=== PATIENT | male | born 1945 | race Caucasian/White ===

== ENCOUNTER 2019-10-10 16:54 | Inpatient (IN) | payer MEDICARE, SELFPAY ==
[2019-10-10 16:54] VITALS: RESP 18
[2019-10-10 17:14] VITALS: BP 172/129; PULSE 96; RESP 18; TEMP 36.6; O2SAT 97; BMI 22.8
--- NOTE | 2019-10-10 17:23 | ED_ITS ---
Entered by Kim Lucio, acting as scribe for Renee Murphy MD HPI - Abdominal Pain General: Chief Complaint: Abdominal Pain Stated Complaint: Abd pain/vomiting black tar Time Seen by Provider: 10/10/19 17:18 Source: patient Mode of arrival: ambulatory Limitations: no limitations History of Present Illness: HPI narrative: 74 yo Male presents to ED with complaint of abdominal pain, nausea, vomiting, and black, coffee ground emesis. Pt states that he has a history of pancreatitis and this episode feels similar. He also tells me he has a known pancreatic mass, also tells me that they tried to remove it but could not because it was wrapped around the vessel this was in [place] I believe. He has had several abdominal surgeries for hernias and also had infected sutures. He has vomited several times today but declines any pain medicine at this time. Pain is 3 out of 10 diffuse. Denies any increased shortness of breath but does use albuterol as needed. No known fever or cold symptoms at this time. MD elicited complaint: abdominal pain Onset (ago): day(s) (yesterday) Pain Consistency: intermittent Pain scale (0-10): 3 Quality: dull Radiation: back (lower) Migration to: no migration Exacerbating factors: nothing Relieving factors: nothing Associated Symptoms: Reports coffee ground emesis, hematemesis, nausea and vomiting; Denies change in bowel habits, chills and fever(s) Review of Systems General: Reports: 10 or more systems reviewed and unremarkable except in HPI and below Const: Denies: fever or chills Eyes: Denies: change in vision ENMT: Denies: throat pain Card: Denies: chest pain Resp: Denies: shortness of breath GI: Reports: nausea, vomiting, vomiting blood and coffee grounds in vomit; Denies: abdominal pain or change in bowel habits Musc: Denies: muscle weakness Skin/Breast: Denies: rash Neuro: Denies: headache Psych: Denies: hopelessness or suicidal ideation Endo: Denies: excessive urination Narciso/Lymph: Denies: easy bruising or easy bleeding All/Imm: Denies: hives PFS ED PFSH: Medical History (Updated 10/10/19 @ 20:12 by Jaci Dudley MD) COPD (chronic obstructive pulmonary disease) Diabetes mellitus type 2, noninsulin dependent Hypertension Pancreatic mass spongy mass, per pt, wrapped around aorta Ventral hernia multiple, no current mesh Surgical History (Updated 10/10/19 @ 20:14 by Jaci Dudley MD) History of cholecystectomy History of laparotomy (~2012) unable to resect mass, had mesh, removed after infection, has multiple ventral hernias related to this Previous back surgery x 4, L3, L4, L5 S/P TURP Family History (Updated 10/10/19 @ 20:17 by Jaci Dudley MD) Unknown Cancer breast, skin, brain, colon Social History (Updated 10/10/19 @ 20:18 by Jaci Dudley MD) Smoking and tobacco status: former smoker Quit status (tobacco): has quit using tobacco Year quit tobacco: 2011 Alcohol intake: current Alcohol intake frequency: holidays/special occasions only Substance/Drug Use: never Household members: children Marital status: / Physical Exam Const: COMMON NORMALS: no apparent distress, oriented x3, alert and well nourished HENMT: COMMON NORMALS: normocephalic and external nose normal HEAD & SCALP: normocephalic NOSE: external nose normal MOUTH: no trismus Eye: COMMON NORMALS: EOMs intact bilaterally and conjunctivae normal CONJUNCTIVA: Yes conjunctivae normal Neck/C-Spine: COMMON NORMALS: full ROM, no lymphadenopathy and supple CERVICAL SPINE: Yes cervical ROM normal Lymph: LYMPHATIC: no lymphadenopathy noted Resp: COMMON NORMALS: normal respiratory effort, no retractions, no use of accessory muscles and clear to auscultation bilaterally EFFORT & INSPECTION: Yes able to speak in complete sentences AUSCULTATION: clear to auscultation bilaterally Cardio: COMMON NORMALS: regular rate and regular rhythm RATE: regular rate RHYTHM: regular rhythm GI: PALPATION: No guarding and No rigid OTHER: Decreased bowel sounds slightly distended. Tender to moderate palpation no rigidity does not have a surgical abdomen at this time. Back/Pelvis: OTHER: Normal range of motion Extremity: GENERAL: Yes normal exam except as noted Neuro: COMMON NORMALS: oriented x3 and CN's II-XII intact bilaterally SENSORIUM/ORIENTATION: Yes alert SPEECH: speech normal Psych: COMMON NORMALS: mental status grossly normal Skin: COMMON NORMALS: no rashes or lesions noted GENERAL SKIN EXAM: no rashes or lesions noted Course Vital Signs: Vital signs: Vital Signs Temperature 97.9 F 10/10/19 17:14 Pulse Rate 86 10/10/19 20:17 Respiratory Rate 17 10/10/19 18:54 Blood Pressure 163/91 10/10/19 20:17 Pulse Oximetry 98 10/10/19 20:17 MDM - Abdominal Pain MDM Narrative: Medical decision making narrative: Declined any pain medication. States his pain is a 3 out of 10 Discussed with hospitalist will admit. Patient tells me he has had NG tube in the past and does not mind them I have already ordered NG tube insertion. He still declines pain medication. He does not have pancreatitis but pancreatic mass is noted he was aware he had a pancreatic mass when he came in. He has not had any vomiting in the emergency department but has vomited numerous times today. Lab Data: Labs: Lab Results 10/10/19 10/10/19 10/10/19 Range/Units 17:31 17:31 17:31 WBC 22.4 H (4.0-10.0) 10^3/ uL RBC 6.12 H (4.1-5.3) 10^6/u L Hgb 16.6 (11.7-16.6) g/dL Hct 51.0 (42.0-52.0) % MCV 83.3 (80-94) fL MCH 27.1 L (28.0-34.0) pg MCHC 32.5 (30.0-36.0) g/dL RDW 15.6 H (12.1-15.1) % Plt Count 401 H (130-400) 10^3/c mm MPV 11.1 H (7.4-10.4) fL Neut % (Auto) 86.0 % Lymph % (Auto) 8.6 % [place] % (Auto) 4.7 % Eos % (Auto) 0.1 % Baso % (Auto) 0.2 % Neut # (Auto) 19.3 H (1.8-7.7) 10^3/u L Lymph # (Auto) 1.9 (0.8-4.8) 10^3/u L [place] # (Auto) 1.1 H (0.2-0.9) 10^3/u L Eos # (Auto) 0.0 (0.0-0.8) 10^3/u L Baso # (Auto) 0.1 (0.0-0.1) 10^3/u L Nucleated RBC % (a uto) 0 % Nucleated RBCs # 0.0 /100WBC PT 14.00 H (10.5-13.3) SECO NDS INR 1.04 (0.8-1.2) Sodium 136 (136-145) mmol/L Potassium 4.8 (3.5-5.1) mmol/L Chloride 95 L (98-107) mmol/L Carbon Dioxide 22 (22-29) mmol/L Anion Gap 23.8 H (5-19) BUN 31 H (8-23) mg/dL Creatinine 2.3 H (0.7-1.2) mg/dL Glucose 259 H (65-115) mg/dL Calculated Osmolal ity 288 (285-295) mOsm/k g Calcium 10.7 H (8.5-10.5) mg/dL Total Bilirubin 0.5 (0.15-1.2) mg/dL AST 15 (0-40) U/L ALT 14 (0-41) U/L Alkaline Phosphata se 140 H (40-130) IU/L Total Protein 9.2 H (6.6-8.7) g/dL Albumin 5.1 (3.5-5.2) g/dL Globulin 4.1 (1.3-4.6) g/dL Lipase 22 (13-60) U/L Imaging Data ^: CXR: Attestation: I personally reviewed and interpreted this imaging study as follows: My impression: No acute disease CT Abd/Pel: Radiologist's impression: [place] [address] CT Scan Report Signed Patient: Jonathon Green JrUnit #: [id number] : 6Acct#:[id number] Age/Sex: 74 / MADM Date: 10/10/19 Loc: ERRoom/Bed: Attending Dr: Ordering Provider/Ordering MD: Renee Murphy MD Date of Service: 10/10/19 Procedure(s): CT abdomen pelvis [facility] [id number] Accession Number(s): [id number] Report Number: [id number] PROCEDURE INFORMATION: Exam: CT Abdomen And Pelvis Without Contrast Exam date and time: 10/10/2019 6:22 PM Age: 74 years old Clinical indication: Nausea and vomiting and other: Diarrhea; Abdominal pain; Generalized; Prior surgery; Surgery type: Gb, appy, hernia, prostate; Patient HX: Vomiting blood; Additional info: Abd pain feels like his pancreatitis TECHNIQUE: Imaging protocol: Computed tomography of the abdomen and pelvis without contrast. Total DLP: 632.8 mGy-cm Radiation optimization: All CT scans at this facility use at least one of these dose optimization techniques: automated exposure control; mA and/or kV adjustment per patient size (includes targeted exams where dose is matched to clinical indication); or iterative reconstruction. COMPARISON: No relevant prior studies available. FINDINGS: Lungs: There is severe emphysematous changes. There is bronchiectasis with some interstitial and ground-glass opacity in the lungs with a tree-in-bud appearance compatible with mild basilar pneumonitis. Mediastinum: A small hiatal hernia is present. Liver: The liver has a finely nodular contour, consistent with cirrhosis. Gallbladder and bile ducts: There has been a cholecystectomy. Pancreas: The head and body of the pancreas are in large with a multi loculated/septated masslike appearance with multiple calcifications measuring 8.0 x 13.5 by 15.0 cm in size. 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 There is marked atrophy of the distal pancreas. No peripancreatic inflammatory change or fluid. No active/acute pancreatitis or simple fluid collection/pseudocyst. Spleen: Normal. No splenomegaly. Adrenals: Normal. No mass. Kidneys and ureters: There is no evidence of hydronephrosis. There is no evidence of renal calcifications. There is a 1.5 cm simple cyst in the left kidney. There is a 1.2 cm upper pole simple cyst in the right kidney. There is a 2.1 cm simple cyst lower pole left kidney. Stomach and bowel: Moderate diverticulosis is present in the distal colon. There is no evidence of colitis/diverticulitis. There is no evidence of colitis/diverticulitis. There are dilated loops of small bowel with air-fluid levels compatible with a partial small bowel obstruction. The greatest transverse measurement the dilated loops of bowel is 4.3 cm. There is an abrupt transition zone in the appearance is concerning for adhesions. The distal loops of small bowel are collapsed. Note is made that the large pancreatic mass is displacing the distal stomach. No definable fat plane is identified between the mass and the distal stomach and duodenum. MRI would be helpful in this regard. No thickened loops of bowel. No inflammatory changes. Appendix: A normal appendix is identified. Intraperitoneal space: Unremarkable. No free air. No significant fluid collection. Vasculature: The aorta demonstrates moderate atherosclerotic calcification. Lymph nodes: Unremarkable.No enlarged lymph nodes. Bladder: There is nonspecific bladder wall thickening. This may be related to incomplete distention. There is a diverticulum of the right bladder wall. Reproductive: Unremarkable as visualized. Bones/joints: Postoperative changes in the lower lumbar spine are noted. There are probable bone graft donor sites in both iliac wings. No acute fracture or bony destructive lesion is identified. Soft tissues: There is a nonobstructing left inguinal hernia. Other findings: There are some varicosities in the upper abdomen. CT/CT abdomen pelvis wo con [id number] IMPRESSION: 1. Emphysematous changes with mild pneumonitis. 2. Partial small bowel obstruction with abrupt transition zone concerning for adhesions. No wall thickening or inflammatory changes. 3. Large septated multiloculated pancreatic mass with irregular calcifications concerning for pancreatic neoplasm. This is not a typical pseudocyst. No evidence of acute pancreatitis. MRI with and without contrast would be most sensitive to further characterize this pancreatic lesion. MRI would also be helpful to evaluate the stomach and duodenum which are displaced by this mass. 4. Bilateral simple appearing renal cysts. No follow-up is necessary. COMMENTS: Consistent with the [employer]'s Incidental Findings Committee white paper (J Am Karolina Radiol 2018): Any incidental cystic renal lesion classified in this report as too small to characterize or simple appearing is likely a benign cyst. No follow-up imaging is recommended for these lesions per consensus recommendations based on imaging criteria. Radiation Dose CTDIVOL = (mGy): DLP = 632.8 (mGy-cm) Dictated By:Shakila Wong Signed By:Dvaey Wong Date/Time:10/10/191908 DD/ 06 Discharge Plan Discharge Patient Disposition: Admitted As Inpatient Admit Provider: Jaci Dudley Clinical Impression: Small bowel obstruction, Pancreatic mass Condition: Stable Referrals: Jerome,Allyson M, [employer]MENT TENDER [Primary Care Provider] - Coding Level of Care Code ED Carpenter Assembler for Chg Fwd Exam Comprehensive The documentation recorded by the Khadijah peterson Carmen, accurately reflects the service I personally performed and the decisions made by me, Renee Murphy MD
[2019-10-10 17:37] LABS: Basophils # 0.1 10^3/uL (0.0-0.1); Basophils % 0.2 %; Eosinophils % 0.1 %; Hemoglobin 16.6 g/dL (11.7-16.6); Lymphocytes # 1.9 10^3/uL (0.8-4.8); Lymphocytes % 8.6 %; Mean Corpuscular HGB Conc 32.5 g/dL (30.0-36.0); Mean Corpuscular Hemoglobin 27.1 pg (28.0-34.0); Mean Corpuscular Volume 83.3 fL (80-94); Mean Platelet Volume 11.1 fL (7.4-10.4); Monocytes # 1.1 10^3/uL (0.2-0.9); Monocytes % 4.7 %; Neutrophils # 19.3 10^3/uL (1.8-7.7); Nucleated Red Blood Cells % 0 %; Platelet Count 401 10^3/cmm (130-400); Red Blood Count 6.12 10^6/uL (4.1-5.3); Red Cell Distribution Width 15.6 % (12.1-15.1); White Blood Count 22.4 10^3/uL (4.0-10.0)
--- NOTE | 2019-10-10 17:38 | CTR_ITS ---
PROCEDURE INFORMATION: Exam: CT Abdomen And Pelvis Without Contrast Exam date and time: 10/10/2019 6:22 PM Age: 74 years old Clinical indication: Nausea and vomiting and other: Diarrhea; Abdominal pain; Generalized; Prior surgery; Surgery type: Gb, appy, hernia, prostate; Patient HX: Vomiting blood; Additional info: Abd pain feels like his pancreatitis TECHNIQUE: Imaging protocol: Computed tomography of the abdomen and pelvis without contrast. Total DLP: 632.8 mGy-cm Radiation optimization: All CT scans at this facility use at least one of these dose optimization techniques: automated exposure control; mA and/or kV adjustment per patient size (includes targeted exams where dose is matched to clinical indication); or iterative reconstruction. COMPARISON: No relevant prior studies available. FINDINGS: Lungs: There is severe emphysematous changes. There is bronchiectasis with some interstitial and ground-glass opacity in the lungs with a tree-in-bud appearance compatible with mild basilar pneumonitis. Mediastinum: A small hiatal hernia is present. Liver: The liver has a finely nodular contour, consistent with cirrhosis. Gallbladder and bile ducts: There has been a cholecystectomy. Pancreas: The head and body of the pancreas are in large with a multi loculated/septated masslike appearance with multiple calcifications measuring 8.0 x 13.5 by 15.0 cm in size. 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 There is marked atrophy of the distal pancreas. No peripancreatic inflammatory change or fluid. No active/acute pancreatitis or simple fluid collection/pseudocyst. Spleen: Normal. No splenomegaly. Adrenals: Normal. No mass. Kidneys and ureters: There is no evidence of hydronephrosis. There is no evidence of renal calcifications. There is a 1.5 cm simple cyst in the left kidney. There is a 1.2 cm upper pole simple cyst in the right kidney. There is a 2.1 cm simple cyst lower pole left kidney. Stomach and bowel: Moderate diverticulosis is present in the distal colon. There is no evidence of colitis/diverticulitis. There is no evidence of colitis/diverticulitis. There are dilated loops of small bowel with air-fluid levels compatible with a partial small bowel obstruction. The greatest transverse measurement the dilated loops of bowel is 4.3 cm. There is an abrupt transition zone in the appearance is concerning for adhesions. The distal loops of small bowel are collapsed. Note is made that the large pancreatic mass is displacing the distal stomach. No definable fat plane is identified between the mass and the distal stomach and duodenum. MRI would be helpful in this regard. No thickened loops of bowel. No inflammatory changes. Appendix: A normal appendix is identified. Intraperitoneal space: Unremarkable. No free air. No significant fluid collection. Vasculature: The aorta demonstrates moderate atherosclerotic calcification. Lymph nodes: Unremarkable.No enlarged lymph nodes. Bladder: There is nonspecific bladder wall thickening. This may be related to incomplete distention. There is a diverticulum of the right bladder wall. Reproductive: Unremarkable as visualized. Bones/joints: Postoperative changes in the lower lumbar spine are noted. There are probable bone graft donor sites in both iliac wings. No acute fracture or bony destructive lesion is identified. Soft tissues: There is a nonobstructing left inguinal hernia. Other findings: There are some varicosities in the upper abdomen. CT/CT abdomen pelvis wo con [id number] IMPRESSION: 1. Emphysematous changes with mild pneumonitis. 2. Partial small bowel obstruction with abrupt transition zone concerning for adhesions. No wall thickening or inflammatory changes. 3. Large septated multiloculated pancreatic mass with irregular calcifications concerning for pancreatic neoplasm. This is not a typical pseudocyst. No evidence of acute pancreatitis. MRI with and without contrast would be most sensitive to further characterize this pancreatic lesion. MRI would also be helpful to evaluate the stomach and duodenum which are displaced by this mass. 4. Bilateral simple appearing renal cysts. No follow-up is necessary. COMMENTS: Consistent with the [employer]'s Incidental Findings Committee white paper (J Am Karolina Radiol 2018): Any incidental cystic renal lesion classified in this report as too small to characterize or simple appearing is likely a benign cyst. No follow-up imaging is recommended for these lesions per consensus recommendations based on imaging criteria. Radiation Dose CTDIVOL = (mGy): DLP = 632.8 (mGy-cm)
--- NOTE | 2019-10-10 17:43 | XRR_ITS ---
PROCEDURE INFORMATION: Exam: XR Chest, 1 View Exam date and time: 10/10/2019 6:22 PM Age: 74 years old Clinical indication: Patient HX: Limited HX, cough TECHNIQUE: Imaging protocol: XR of the chest Views: 1 view. COMPARISON: No relevant prior studies available. FINDINGS: Lungs: There is severe hyperinflation compatible COPD. There is mild basilar volume loss versus fibrosis. No lobar consolidation. Probable bilateral nipples are creating symmetric size small nodular densities projected over both lower lobes measuring by 8 mm in size. The right nodular densities much more apparent. No consolidation. Pleural space: Unremarkable. No pleural effusion. No pneumothorax. Heart/Mediastinum: Unremarkable. No cardiomegaly. Bones/joints: No acute abnormality. XR/XR chest 1V portable [id number] IMPRESSION: 1. No acute findings. Severe COPD and basilar atelectasis versus fibrosis. 2. Probable nipples are creating symmetric nodular densities projected over the lung bases. Follow-up two view chest x-ray with nipple markers is recommended to exclude true pulmonary nodules.
[2019-10-10 17:48] LABS: INR 1.04 (0.8-1.2)
[2019-10-10 17:54] LABS: Alanine Aminotransferase 14 U/L (0-41); Albumin Level 5.1 g/dL (3.5-5.2); Alkaline Phosphatase 140 IU/L (40-130); Anion Gap 23.8 (5-19); Aspartate Amino Transferase 15 U/L (0-40); Blood Urea Nitrogen 31 mg/dL (8-23); Calcium 10.7 mg/dL (8.5-10.5); Carbon Dioxide 22 mmol/L (22-29); Chloride 95 mmol/L (98-107); Globulin 4.1 g/dL (1.3-4.6); Glucose 259 mg/dL (65-115); Lipase 22 U/L (13-60); Osmolality Calculated 288 mOsm/kg (285-295); Potassium 4.8 mmol/L (3.5-5.1); Sodium 136 mmol/L (136-145); Total Bilirubin 0.5 mg/dL (0.15-1.2); Total Protein 9.2 g/dL (6.6-8.7)
[2019-10-10] MEDS: famotidine 20 mg/2 mL INJ IVP ×2 (17:54→22:36)
[2019-10-10] MEDS: ondansetron 2 mg/ML SDV 2 mL 4 MG IVP (18:01)
[2019-10-10] MEDS: sodium chloride 0.9% 1,000 ML 999 ML IV (18:53)
[2019-10-10 18:54] VITALS: BP 96/83; PULSE 83; RESP 17; O2SAT 98
--- NOTE | 2019-10-10 20:14 | PM.HP ---
Providers/Chief Complaint Admitting Physician: Jaci Dudley MD Primary Care Provider: MARCUS Pickens Chief Complaint: Abd pain/vomiting History of Present Illness Jonathon rGeen Jr is a 74 year old male who presented to the emergency room with chief complaint of abdominal pain. It began yesterday after awakening. Pain was located in the central part of the abdomen. Radiated into the right flank at that point in time. At its worst it was rated a 10 out of 10. Currently at a 4 out of 10. Today he began having vomiting of dark-colored emesis, several episodes. He is also had 4-5 loose watery stools. He normally has a moderately formed bowel movement every other day. His last moderately formed bowel movement was about a week ago. No recent history of any blood in the stools or black tarry stools. Last oral intake was last evening. Patient has a history of known pancreatic mass. It is not malignant. It was not resectable however due to being wrapped around the aorta. He developed multiple ventral hernias and adhesions after his initial surgery related to this. He has had what sounds like small bowel obstructions previously managed conservatively with NG tube placement. Last significant bout with any of this was 5 to 7 years ago. In the emergency room he had a CT scan of his abdomen done that showed evidence of small bowel obstruction with a transition point. White count was found to be 22,000. He is being admitted for further care. Patient is relatively new to the area. He follows with nurse practitioner Allyson Cano. He has never been hospitalized or received care at our facilities. Denies recent fever or chills. He has known COPD on chronic oxygen at 3L [facility] but denies increasing cough, which is always productive, increasing wheeze or increased shortness of breath. Him and his family have been following recommended COVID measures. Review of Systems General: Reports: ROS unobtainable due to mental status Const: Reports: malaise (Mild); Denies: fever, chills, change in weight (No recent change in weight) or night sweats Eyes: Denies: change in vision ENMT: Denies: throat pain Card: Denies: chest pain Resp: Reports: productive cough and wheezing; Denies: shortness of breath GI: Reports: abdominal pain, nausea and vomiting : Denies: difficulty urinating, urinary frequency, urinary hesitancy or urinary dribbling Musc: Reports: back pain; Denies: joint pain or redness Skin/Breast: Denies: rash or sores Neuro: Denies: headache, numbness in extremities, weakness in extremities or frequent falls Narciso/Lymph: Denies: easy bruising or easy bleeding Medications/Allergies Home Medications Medication Instructions Recorded Confirmed Last Taken Type albuterol sulfate See Rx Instructions .ROUTE .COMPLEX 10/10/19 10/10/19 10/10/19 History amlodipine 5 mg PO DAILY 10/10/19 10/10/19 10/08/19 History benazepril 20 mg PO DAILY 10/10/19 10/10/19 10/08/19 History esomeprazole magnesium 20 mg PO DAILY 10/10/19 10/10/19 10/08/19 History metformin 500 mg PO DAILY 10/10/19 10/10/19 10/10/19 History metoprolol tartrate 25 mg PO BID 10/10/19 10/10/19 10/10/19 History tiotropium bromide [Spiriva 2 puff INHALATION DAILY 10/10/19 10/10/19 10/10/19 History Respimat] Allergies Allergy/AdvReac Type Severity Reaction Status Date / Time Opioids-Methadone and Related Allergy ADR-Itching Verified 10/10/19 17:14 Additional Medication Information Additional Medication Information: Home medications reviewed with patient and son PFSH Acute PFSH: Medical History (Updated 10/10/19 @ 21:32 by Jaci Dudley MD) COPD (chronic obstructive pulmonary disease) chronically on 3l oxygen [facility] Diabetes mellitus type 2, noninsulin dependent Hypertension Pancreatic mass spongy mass, per pt, wrapped around aorta Ventral hernia multiple, no current mesh Surgical History (Updated 10/10/19 @ 20:14 by Jaci Dudley MD) History of cholecystectomy History of laparotomy (~2012) unable to resect mass, had mesh, removed after infection, has multiple ventral hernias related to this Previous back surgery x 4, L3, L4, L5 S/P TURP Family History (Updated 10/10/19 @ 20:17 by Jaci Dudley MD) Unknown Cancer breast, skin, brain, colon Social History (Updated 10/10/19 @ 20:18 by Jaci Dudley MD) Smoking and tobacco status: former smoker Quit status (tobacco): has quit using tobacco Year quit tobacco: 2011 Alcohol intake: current Alcohol intake frequency: holidays/special occasions only Substance/Drug Use: never Household members: children Marital status: / Vitals/I&O/Wt Last Vital Signs Temp 97.9 F 10/10/19 17:14 Pulse 83 10/10/19 18:54 Resp 17 10/10/19 18:54 BP 96/83 10/10/19 18:54 Pulse Ox 98 10/10/19 18:54 most recent blood pressure during my examination was 163/93 Weight last 48 hrs Weight 70.307 kg Physical Exam Const: COMMON NORMALS: oriented x3 and alert HENMT: HEAD & SCALP: normocephalic and atraumatic Eye: COMMON NORMALS: PERRL and EOMs intact bilaterally Neck/C-Spine: COMMON NORMALS: supple Resp: COMMON NORMALS: normal respiratory effort, no use of accessory muscles and clear to auscultation bilaterally Cardio: COMMON NORMALS: regular rate, regular rhythm, no gallops, no murmurs and no rub GI: AUSCULTATION: Yes hypoactive bowel sounds PALPATION: Yes soft, Yes tender Details: RUQ and other (Central along ventral hernia), Yes hernia ventral (Multiple, 1 in the left upper quadrant reducible, another to the left of midline around the umbilicus reducible, has report of others but these were the only 2 I could clearly identify), No pulsatile mass and No rebound tenderness present PERCUSSION: tympanic to percussion (mild) OTHER: Abdomen has a general lumpy appearance with a ventral midline scar as well as another scar in the left upper quadrant area. Patient is mildly tender in the mid line at the usp point of his ventral scar as well as in the right upper quadrant. No rebound or guarding Extremity: COMMON NORMALS: no clubbing, cyanosis or edema Neuro: COMMON NORMALS: oriented x3, moves all extremities and no sensory deficits noted Psych: COMMON NORMALS: thought process normal and cooperative Skin: COMMON NORMALS: no rashes or lesions noted and no mottling Data : 10/10/19 17:31 10/10/19 17:31 Other Labs: Laboratory Tests 10/10/19 10/10/19 10/10/19 17:31 17:31 17:31 Neut % (Auto) 86.0 INR 1.04 Total Bilirubin 0.5 AST 15 ALT 14 Alkaline Phosphatase 140 H Total Protein 9.2 H Albumin 5.1 Lipase 22 Urine Glucose (UA) Ur Leukocyte Esterase 10/10/19 20:20 Neut % (Auto) INR Total Bilirubin AST ALT Alkaline Phosphatase Total Protein Albumin Lipase Urine Glucose (UA) Trace H Ur Leukocyte Esterase Trace H CXR: Radiologist's impression: IMPRESSION: 1. No acute findings. Severe COPD and basilar atelectasis versus fibrosis. 2. Probable nipples are creating symmetric nodular densities projected over the lung bases. Follow-up two view chest x-ray with nipple markers is recommended to exclude true pulmonary nodules CT Abd/Pel: Radiologist's impression: IMPRESSION: 1. Emphysematous changes with mild pneumonitis. 2. Partial small bowel obstruction with abrupt transition zone concerning for adhesions. No wall thickening or inflammatory changes. 3. Large septated multiloculated pancreatic mass with irregular calcifications concerning for pancreatic neoplasm. This is not a typical pseudocyst. No evidence of acute pancreatitis. MRI with and without contrast would be most sensitive to further characterize this pancreatic lesion. MRI would also be helpful to evaluate the stomach and duodenum which are displaced by this mass. 4. Bilateral simple appearing renal cysts. No follow-up is necessary. A&P Assessment and plan (1) Small bowel obstruction: In a patient with known history of multiple ventral hernias and previousSurgeries for an unresectable pancreatic mass which is benign. He has a transition point noted and an elevated white blood count but is currently passing gas, having liquid stools. He does have some vomiting though at the present moment is doing generally better. Status: Acute Code(s): K56.609 - Unspecified intestinal obstruction, unspecified as to partial versus complete obstruction (2) Acute renal failure: Versus new diagnosis of chronic kidney disease. He denies any history of such. Risk factors include known diabetes and hypertension. He is chronically on an ABILIO inhibitor and has been on metformin. Volume of loose stools and vomiting could contribute to prerenal failure. Without any baseline labs for comparison though hard to know presently. Status: Acute Qualifiers: Acute renal failure type: unspecified Qualified Code(s): N17.9 - Acute kidney failure, unspecified Code(s): N17.9 - Acute kidney failure, unspecified (3) Abnormal urine: Patient with trace leukocyte esterase on urinalysis. Awaiting micro. Denies any urinary symptoms. Status: Acute Code(s): R82.90 - Unspecified abnormal findings in urine (4) Pancreatic mass: Longstanding diagnosis, benign, wrapped around the aorta. Status: Chronic Code(s): K86.89 - Other specified diseases of pancreas (5) Diabetes mellitus type 2, noninsulin dependent: Takes metformin regularly once a day Status: Chronic Code(s): E11.9 - Type 2 diabetes mellitus without complications (6) Hypertension: Chronically on amlodipine, benazepril and metoprolol Status: Chronic Qualifiers: Hypertension type: essential hypertension Qualified Code(s): I10 - Essential (primary) hypertension Code(s): I10 - Essential (primary) hypertension (7) COPD (chronic obstructive pulmonary disease): Not currently acute, chronically on Spiriva and albuterol has chronic productive cough and wheezing without any escalation in symptoms lately. Status: Chronic Qualifiers: COPD type: unspecified COPD Qualified Code(s): J44.9 - Chronic obstructive pulmonary disease, unspecified Code(s): J44.9 - Chronic obstructive pulmonary disease, unspecified Additional A&P Information Admit to inpatient status NG tube placement IV fluids Reevaluate renal function in the morning Empiric antibiotic coverage to include coverage for both GI and potential urinary sources Follow-up pending micro on urinalysis SCDs for DVT prophylaxis PPI for GI prophylaxis, of note patient does take Nexium chronically Continue Spiriva and albuterol as needed, home oxygen rate Monitor for any progressive respiratory symptoms Sliding scale insulin for diabetes Check hemoglobin A1c given current blood sugars greater than 250 Will hold oral antihypertensives for the moment but order some as needed IV Surgical consultation with Dr. Frank's given history and CT imaging findings. I have discussed with him and he will see patient in the morning Plans were discussed with patient and his son and both were given an opportunity to ask questions. The patient did ask about having his ventral hernias repaired during this hospital stay. Explained to him that unless he had an acute issue necessitating surgical intervention that these would be considered elective procedures which are not being done now in light of the COVID situation. Both the patient and his son expressed a clear understanding of this. 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 CODE STATUS was reviewed. Patient would like to be resuscitated if it was reasonable that he might recover but no long-term resuscitative efforts. CODE STATUS will be full code during this hospital stay. Attestations Medical Necessity Statement*: Anticipated stay greater than 2 midnights in a patient with evidence of small bowel obstruction with a transition point. He has multiple ventral hernias and a known pancreatic mass. While symptoms are mild currently at high risk of progressive symptoms. He also has a current elevation in white count which is concerning. Further patient has evidence of acute versus chronic renal failure and other comorbid issues as noted above. Coding Level of Care Code Acute [facility] Small bowel obstruction K56.609 Acute renal failure N17.9 Acute renal failure type: unspecified Abnormal urine R82.90 Pancreatic mass K86.89 Diabetes mellitus type 2, noninsulin dependent E11.9 Hypertension I10 Hypertension type: essential hypertension COPD (chronic obstructive pulmonary disease) J44.9 COPD type: unspecified COPD
[2019-10-10 20:17] VITALS: BP 163/91; PULSE 86; O2SAT 98
[2019-10-10 20:39] LABS: Bilirubin Urine Neg (NEGATIVE); Blood Urine Neg (Negative); Glucose Urine UA Trace (Normal); Ketones Urine Negative (Negative); Nitrate Urine Negative (Negative); Protein Urine Neg (Negative); Urine Appearance Clear (CLEAR); Urine Color Yellow (Yellow); Urobilinogen Urine Norm (Negative); pH Urine 5 (5-7)
[2019-10-10 20:40] LABS: Add Urine Microscopic? YES; Leukocyte Esterase Urine Trace (Negative)
[2019-10-10 20:45] LABS: Hyaline Casts Urine 25-40
[2019-10-10 20:47] LABS: Add Urine Culture? Yes; Bacteria Urine 2+; RBC Urine 0-4 /hpf (0-2); Squamous Epithelial Cell Urine 0-4 (0-5); WBC Urine 15-25 /hpf (0-5)
[2019-10-10 21:29] VITALS: BP 149/82; PULSE 80; O2SAT 98
[2019-10-10 21:38] VITALS: BP 140/82; PULSE 75; RESP 16; TEMP 37; O2SAT 97
--- NOTE | 2019-10-10 22:00 | PC.NURSE ---
attempted NG tube 3 times on pt. Twice in the right nare and once in the left nare without success. pt was very cooperative with all attempts.
[2019-10-10 22:24] LABS: Lactic Sepsis W/Reflex 1.9 mmol/L (0.5-2.2)
[2019-10-10] MEDS: sodium chloride 0.9% 1,000 ML 100 ML IV (22:37)
[2019-10-10] MEDS: metroNIDAZOLE IV 250 MG in empty flexible container 1 EACH 50 MG IV (23:45)
[2019-10-10] MEDS: cefTRIAXone 1,000 MG in sodium chloride 0.9% (plus) 50 ML 100 MG IV (23:46)
[2019-10-11] VITALS (9 sets, daily range): BP systolic 110–164; BP diastolic 69–85; PULSE 59–81; RESP 18–20; TEMP 36.4–36.9; O2SAT 95–100
[2019-10-11 04:42] LABS: Basophils # 0.1 10^3/uL (0.0-0.1); Basophils % 0.4 %; Eosinophils # 0.2 10^3/uL (0.0-0.8); Eosinophils % 0.8 %; Hematocrit 44.6 % (42.0-52.0); Hemoglobin 14.2 g/dL (11.7-16.6); Lymphocytes # 2.5 10^3/uL (0.8-4.8); Lymphocytes % 13.8 %; Mean Corpuscular HGB Conc 31.8 g/dL (30.0-36.0); Mean Corpuscular Hemoglobin 27.3 pg (28.0-34.0); Mean Corpuscular Volume 85.6 fL (80-94); Mean Platelet Volume 10.6 fL (7.4-10.4); Monocytes # 1.6 10^3/uL (0.2-0.9); Monocytes % 8.9 %; Neutrophils # 13.7 10^3/uL (1.8-7.7); Neutrophils % 75.7 %; Nucleated Red Blood Cells % 0 %; Platelet Count 282 10^3/cmm (130-400); Red Blood Count 5.21 10^6/uL (4.1-5.3); Red Cell Distribution Width 15.7 % (12.1-15.1); White Blood Count 18.1 10^3/uL (4.0-10.0)
--- NOTE | 2019-10-11 04:50 | PC.NURSE ---
This aide asked patient if he had went to the restroom during the night. He stated he used the restroom 5 times, and each time he had a loose bowel movement and voided urine. This aide did not observe the void or bowel movement.
[2019-10-11 04:58] LABS: Anion Gap 15.3 (5-19); Blood Urea Nitrogen 35 mg/dL (8-23); Calcium 9.4 mg/dL (8.5-10.5); Carbon Dioxide 26 mmol/L (22-29); Chloride 104 mmol/L (98-107); Glucose 137 mg/dL (65-115); Osmolality Calculated 292 mOsm/kg (285-295); Potassium 4.3 mmol/L (3.5-5.1); Sodium 141 mmol/L (136-145)
[2019-10-11 05:10] LABS: Estmated Average Glucose 131; Hemoglobin A1C 6.2 % (4.0-6.0)
--- NOTE | 2019-10-11 05:37 | PM.CONSULT ---
Providers/Reason For Consult Consulting Physican/Specialty*: Vince Masters MD Reason for Consult*: Bowel obstruction Attending Physician: Jaci Dudley MD Primary [facility] of Present Illness History of Present Illness Chief Complaint: Abdominal pain History of present illness: Jonathon Green Jr is a 74 year old male scented to the emergency department with worsening abdominal pain for the past 24 hours or so, associated with nausea vomiting and loose stools yet nonbloody, no report of recent antibiotics or travels or unpleasant meals that would explain his clinical picture, patient currently feels better and it seems that the pain was more diffuse without being referred, yet when he started IV fluids and responded well to hydration he started to feel well. Continues to pass gas and have loose stools and is set up to 6 times overnight, on the other hand patient did recall that he had exploratory laparotomy back in 2012 in [place] for an attempt to remove a pancreatic mass that he was told at the time it is benign. Also according to the patient he never got admitted to the hospital with a diagnosis of bowel obstruction before Nursing staff patient refused NG tube it seems that he had 4 attempts that did not work General surgery was consulted for further evaluation and management Lactic acid is normal and elevated WBC count which could be due to his pneumonitis/UTI Review of Systems General: Reports: 10 or more systems reviewed and unremarkable except in HPI and below Const: Denies: fever or chills Eyes: Denies: change in vision ENMT: Denies: throat pain Card: Denies: chest pain Resp: Denies: shortness of breath GI: Reports: nausea and vomiting; Denies: abdominal pain or change in bowel habits (Loose stools up to 6 times and passing gas) Musc: Denies: muscle weakness Skin/Breast: Denies: rash Neuro: Denies: headache Psych: Denies: hopelessness or suicidal ideation Endo: Denies: excessive urination Narciso/Lymph: Denies: easy bruising or easy bleeding All/Imm: Denies: hives Meds/Allergies Home Medications and Allergies Home Medications Medication Instructions Recorded Confirmed Type albuterol sulfate See Rx Instructions .ROUTE .COMPLEX 10/10/19 10/10/19 History amlodipine 5 mg PO DAILY 10/10/19 10/10/19 History benazepril 20 mg PO DAILY 10/10/19 10/10/19 History esomeprazole magnesium 20 mg PO DAILY 10/10/19 10/10/19 History metformin 500 mg PO DAILY 10/10/19 10/10/19 History metoprolol tartrate 25 mg PO BID 10/10/19 10/10/19 History tiotropium bromide [Spiriva 2 puff INHALATION DAILY 10/10/19 10/10/19 History Respimat] Allergies Allergy/AdvReac Type Severity Reaction Status Date / Time Opioids-Methadone and Related Allergy ADR-Itching Verified 10/11/19 05:38 Current Medications Current Medications Generic Name Dose Route Start Last Admin Trade Name Freq PRN Reason Stop Dose Admin Famotidine 20 mg 10/10/19 22:00 10/10/19 22:36 Pepcid Inj IVP 20 mg Q24H JOSUÉ Administration Ceftriaxone Sodium 1,000 mg/ 50 mls @ 100 mls/hr 10/10/19 22:00 10/10/19 23:46 Sodium Chloride IV 100 mls/hr Q24H JOSUÉ Administration Protocol Metronidazole 250 mg/ N/A 50 mls @ 50 mls/hr 10/10/19 22:00 10/10/19 23:45 IV 50 mls/hr Q8H JOSUÉ Administration Protocol Sodium Chloride 1,000 mls @ 100 mls/hr 10/10/19 21:49 10/10/19 22:37 Sodium Chloride 0.9% IV 10/11/19 17:48 100 mls/hr .Q10H JOSUÉ Administration PFSH Acute PFSH: Medical History COPD (chronic obstructive pulmonary disease) chronically on 3l oxygen [facility] Diabetes mellitus type 2, noninsulin dependent Hypertension Pancreatic mass spongy mass, per pt, wrapped around aorta Ventral hernia multiple, no current mesh Surgical History History of cholecystectomy History of laparotomy (~2012) unable to resect mass, had mesh, removed after infection, has multiple ventral hernias related to this Previous back surgery x 4, L3, L4, L5 S/P TURP Family History Unknown Cancer breast, skin, brain, colon Social History Smoking and tobacco status: former smoker Quit status (tobacco): has quit using tobacco Year quit tobacco: 2011 Alcohol intake: current Alcohol intake frequency: holidays/special occasions only Substance/Drug Use: never Household members: children Marital status: / Vitals/I&O/Wt Last Vital Signs Temp 98.0 F 10/11/19 04:00 Pulse 71 10/11/19 04:08 Resp 18 10/11/19 04:00 BP 128/85 10/11/19 04:00 Pulse Ox 95 10/11/19 04:08 Weight last 48 hrs Weight 155 lb Physical Exam Const: COMMON NORMALS: no apparent distress and oriented x3 GENERAL APPEARANCE: cooperative ORIENTATION/CONSCIOUSNESS: Yes awake, Yes oriented to person, Yes oriented to place and Yes oriented to time HENMT: COMMON NORMALS: normocephalic HEAD & SCALP: normocephalic Eye: COMMON NORMALS: PERRL and no scleral icterus PUPIL: Yes PERRL Lymph: LYMPHATIC: no lymphadenopathy noted Chest: COMMONS NORMALS: inspection of chest normal Resp: COMMON NORMALS: normal respiratory effort and clear to auscultation bilaterally AUSCULTATION: clear to auscultation bilaterally Cardio: COMMON NORMALS: S1 normal heart sound and S2 normal heart sound; negative for no murmurs HEART SOUNDS: S1 normal and S2 normal GI: COMMON NORMALS: soft to palpation; negative for no hepatosplenomegaly INSPECTION: Yes normal to inspection PALPATION: Yes soft, No firm, No tender, No guarding, No rigid, No no hepatosplenomegaly and Yes hernia (Large mid abdominal ventral incisional hernia/midline scar) Neuro: COMMON NORMALS: oriented x3 SENSORIUM/ORIENTATION: Yes oriented to person, Yes oriented to place and Yes oriented to time Psych: COMMON NORMALS: mental status grossly normal Skin: COMMON NORMALS: no rashes or lesions noted GENERAL SKIN EXAM: no rashes or lesions noted A&P Assessment and plan (1) Small bowel obstruction: 6 AM after thorough history physical examination and reviewing the chart and images with my personal interpretation, the CT scan does not reflect the actual clinical picture, as clinically and per history the patient is passing gas and having bowel movement, yet per CT scan it does show transition point which likely due to adhesions. From surgical standpoint of view I would recommend; 1-to start the patient on ice chips 2-repeated physical examination 3-unlabored concerned about the frequency of bowel movements being nonbloody likely would benefit from stool studies at least to have it as a baseline, less likely the cause would be C. difficile per history but to rule out other factors including ova and parasite. 4-repeated physical examination 5-input and output monitor 6-treatment of UTI and pneumonitis per hospitalist service At this point I do not see an acute surgical indication for intervention We will continue following on the patient Probably the patient should benefit from an outpatient MRI to assess the pancreas due to the increased concern being neoplastic and I would recommend to obtain a CA-19-9 in the interim. 1300 Reevaluated the Patient and Will Start Him on Full Liquid Diet As He Continues to Pass Gas he is tolerated he can be discharged home from surgical standpoint of view and follow-up at document design specialist office with an MRI of the pancreas. Per Dr. Calhoun the patient reported to him that he had eaten a burger that was fixed by his son and there after he started to encounter the symptoms, this picture could represent gastroenteritis. Assurance and education All questions have been answered and all concerns have been addressed to patient's satisfaction. Thank you for consulting general surgery to participate taking care Mr. Green Status: Acute Code(s): K56.609 - Unspecified intestinal obstruction, unspecified as to partial versus complete obstruction Consult Attestations Medical Necessity Statement: Per hospitalist service Time Spent in Patient Care: 16 - 35 minutes (>than 50% of time spent in counselling and/or direct pt care on unit). Coding Level of Care Code Acute Cq Developer [facility] Fwd Exam Comprehensive Diagnoses Small bowel obstruction K56.609
[2019-10-11] MEDS: metroNIDAZOLE IV 250 MG in empty flexible container 1 EACH 50 MG IV ×2 (06:14→15:35)
[2019-10-11 06:34] LABS: Glucose Point of Care 116 mg/dL (70-110)
[2019-10-11] MEDS: pantoprazole DR 40 mg Tablet PO (08:53)
[2019-10-11] MEDS: metoprolol tartrate 50 mg Tablet 25 MG PO ×2 (08:54→17:35)
[2019-10-11] MEDS: levofloxacin-dextrose 5 % 750 MG/150 ML PREMIX 150 MG IV (08:59)
[2019-10-11] MEDS: sodium chloride 0.9% 1,000 ML 100 ML IV (08:59)
[2019-10-11 09:27] LABS: Influenza A by IFA Negative (Negative); Influenza B by IFA Negative (Negative)
[2019-10-11 11:02] LABS: Glucose Point of Care 128 mg/dL (70-110)
--- NOTE | 2019-10-11 12:04 | PC.CHAP ---
Pastoral Care Encounter/Spiritual Assessment Type of Contact [] Declined factory representative visit [] Patient/Family/Request visit [] Outpatient visit [] Follow-up visit [] Physician referral [] Code/Alert [] Routine visit [] Staff referral [] Actively dying [] Patient sleeping [] Family support [] [] Out of room [] Palliative care [] [] Receiving care in room [] Pre-surgical visit [] Trauma [] Long length of stay [] ICU visit [x] Other: isolation Relational/Emotional Strength [] Patient feels connected with others/family/visitors/staff [] Distress [] Loneliness/isolation [] Abandonment Spirituality of Patient [] Person of Senait [] Attends Anglican of their Senait [] Believes in Prayer [] Reads Bible or Islam materials [] There are Spiritual issues to be addressed Radiation Physicist Interventions [] Prayer [] Active listening [] Non-anxious presence [] Spiritual/emotional support [] Crisis/trauma care [] Spiritual counseling [] Bereavement support [] Provided bereavement packet [] Provided Bible/devotional materials [] Provided toy/stuffed animal, coloring book to patient or family member [] Provided Communion [] Anointing/[place] [] Salvation [] Completed spiritual assessment [] Other: Impact on Illness or Injury [] Angry [] Fearful [] Anxious [] Often cries [] Exhaustion [] Unable to work [] Unable to attend yarsani [] Unable to walk/stand [] Unable to read [] Unable to drive [] Unable to eat/drink [] Unable to sleep [] Unable to be with family [] Patient intubated [] Other: Summary islution Time spent with patient 5 mins
--- NOTE | 2019-10-11 12:23 | P.PN_ITS ---
Subjective Subjective: Interval history: He is feeling better. Overnight had multiple loose bowel movements. This morning so far no further diarrhea. Reports his stomach was rock hard previously, now soft. He is overall feeling much better. So far no further vomiting. Vitals/I&O/Wt Last Vital Signs Temp 98.4 F 10/11/19 12:00 Pulse 59 L 10/11/19 12:00 Resp 20 H 10/11/19 12:00 BP 110/73 10/11/19 12:00 Pulse Ox 96 10/11/19 12:00 10/10/19 10/11/19 10/11/19 22:59 06:59 14:59 Intake Total 50 / 50 1050 / 1050 Balance 50 / 50 1050 / 1050 Weight last 48 hrs Weight 70.307 kg Physical Exam Const: COMMON NORMALS: no apparent distress and oriented x3 HENMT: COMMON NORMALS: oropharynx normal Neck/C-Spine: COMMON NORMALS: no JVD Resp: COMMON NORMALS: normal respiratory effort and clear to auscultation bilaterally AUSCULTATION: clear to auscultation bilaterally Cardio: COMMON NORMALS: no JVD, regular rhythm, S1 normal heart sound, S2 normal heart sound and no murmurs RHYTHM: regular rhythm HEART SOUNDS: S1 normal and S2 normal GI: COMMON NORMALS: normal to inspection, nondistended, normoactive bowel sounds, soft to palpation and non-tender INSPECTION: Yes abdominal distension PALPATION: Yes soft Extremity: COMMON NORMALS: no joint enlargement and no pedal edema Neuro: COMMON NORMALS: oriented x3 and moves all extremities Skin: COMMON NORMALS: no rashes or lesions noted GENERAL SKIN EXAM: no rashes or lesions noted Data : 10/11/19 04:31 10/11/19 04:31 A&P Assessment and plan (1) Small bowel obstruction: Today distention is much better. Possibly partial obstruction, with multiple bowel movements overnight. No further vomiting today. Requested stool studies including C diff. He reports eating a burger grilled at his son's house from homemade beef from his son's cow last week. He also reports he draws water from a well on his property. Reports no one else has gotten ill. Discussed with him having well water tested. He verbalized understanding. Discussed with him also maintaining safe food practices avoiding cross-contamination of raw and cooked meat. No abdominal pain in the morning. Was assessed by surgery, started on trial of liquid diet. Subsequently having some abdominal discomfort, and so we did not feel comfortable sending him home. Status: Acute Code(s): K56.609 - Unspecified intestinal obstruction, unspecified as to partial versus complete obstruction (2) Acute renal failure: With improvement with fluid challenge. Hold ABILIO inhibitor. Status: Acute Qualifiers: Acute renal failure type: unspecified Qualified Code(s): N17.9 - Acute kidney failure, unspecified Code(s): N17.9 - Acute kidney failure, unspecified (3) Abnormal urine: UTI: Continue Levaquin. Follow-up urine culture. Status: Acute Code(s): R82.90 - Unspecified abnormal findings in urine (4) Pancreatic mass: Longstanding diagnosis, benign, wrapped around the aorta. Status: Chronic Code(s): K86.89 - Other specified diseases of pancreas (5) Diabetes mellitus type 2, noninsulin dependent: Takes metformin regularly once a day Well-controlled Status: Chronic Code(s): E11.9 - Type 2 diabetes mellitus without complications (6) Hypertension: Chronically on amlodipine, benazepril and metoprolol Status: Chronic Qualifiers: Hypertension type: essential hypertension Qualified Code(s): I10 - Essential (primary) hypertension Code(s): I10 - Essential (primary) hypertension (7) COPD (chronic obstructive pulmonary disease): Not currently acute, chronically on Spiriva and albuterol has chronic productive cough and wheezing without any escalation in symptoms lately. Status: Chronic Qualifiers: COPD type: unspecified COPD Qualified Code(s): J44.9 - Chronic obstructive pulmonary disease, unspecified Code(s): J44.9 - Chronic obstructive pulmonary disease, unspecified (8) Pneumonitis: Incidentally noted on CT. We made him droplet precautions and checked influenza. He has absolutely no respiratory symptoms. Antibiotics switched to Levaquin and Flagyl. This should give him coverage for UTI as well as suspected enterocolitis possibly from ingestion of beef versus contaminated well water. COVID is not suspected at this time. Status: Acute Code(s): J18.9 - Pneumonia, unspecified organism Attestations Medical Necessity Statement*: Continue admission for assessment and management of suspected enterocolitis, UTI, possible pneumonitis, possible partial small bowel obstruction. 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
[2019-10-11] MEDS: acetaminophen 325 mg Tablet 650 MG PO (17:35)
[2019-10-11 17:58] LABS: Glucose Point of Care 105 mg/dL (70-110)
[2019-10-11 21:22] LABS: Glucose Point of Care 85 mg/dL (70-110)
[2019-10-11] MEDS: famotidine 20 mg/2 mL INJ IVP (21:32)
[2019-10-11] MEDS: metroNIDAZOLE IV 250 MG in empty flexible container 1 EACH 100 MG IV (22:12)
[2019-10-12] VITALS (7 sets, daily range): BP systolic 103–144; BP diastolic 59–76; PULSE 63–76; RESP 16–20; TEMP 36.7–36.9; O2SAT 95–98
[2019-10-12] MEDS: metroNIDAZOLE IV 250 MG in empty flexible container 1 EACH 100 MG IV (05:48)
[2019-10-12 05:59] LABS: Basophils % 0.6 %; Eosinophils # 0.1 10^3/uL (0.0-0.8); Eosinophils % 1.3 %; Hemoglobin 11.9 g/dL (11.7-16.6); Lymphocytes # 1.4 10^3/uL (0.8-4.8); Lymphocytes % 20.7 %; Mean Corpuscular HGB Conc 31.3 g/dL (30.0-36.0); Mean Corpuscular Hemoglobin 27.4 pg (28.0-34.0); Mean Corpuscular Volume 87.4 fL (80-94); Mean Platelet Volume 11.4 fL (7.4-10.4); Monocytes # 0.6 10^3/uL (0.2-0.9); Monocytes % 8.6 %; Neutrophils # 4.8 10^3/uL (1.8-7.7); Neutrophils % 68.5 %; Nucleated Red Blood Cells % 0 %; Platelet Count 188 10^3/cmm (130-400); Red Blood Count 4.35 10^6/uL (4.1-5.3); Red Cell Distribution Width 15.4 % (12.1-15.1)
[2019-10-12 06:10] LABS: Alanine Aminotransferase 11 U/L (0-41); Albumin Level 3.7 g/dL (3.5-5.2); Alkaline Phosphatase 88 IU/L (40-130); Anion Gap 12.4 (5-19); Aspartate Amino Transferase 16 U/L (0-40); Blood Urea Nitrogen 23 mg/dL (8-23); Carbon Dioxide 26 mmol/L (22-29); Chloride 103 mmol/L (98-107); Globulin 2.1 g/dL (1.3-4.6); Glucose 101 mg/dL (65-115); Osmolality Calculated 281 mOsm/kg (285-295); Potassium 4.4 mmol/L (3.5-5.1); Sodium 137 mmol/L (136-145); Total Bilirubin 0.4 mg/dL (0.15-1.2); Total Protein 5.8 g/dL (6.6-8.7)
--- NOTE | 2019-10-12 06:12 | PM.PN ---
Subjective Subjective: Interval history: Patient overall tolerated full liquid diet yet he did encounter some abdominal pain yesterday and was kept overnight, continues to pass a lot of gas but no bowel movements yet. Vitals/I&O/Wt Last Vital Signs Temp 98.1 F 10/12/19 04:00 Pulse 76 10/12/19 04:00 Resp 18 10/12/19 04:00 BP 103/59 10/12/19 04:00 Pulse Ox 95 10/12/19 04:00 10/11/19 10/11/19 10/12/19 14:59 22:59 06:59 Intake Total 1050 / 1050 770 / 1820 50 / 1870 Balance 1050 / 1050 770 / 1820 50 / 1870 Weight last 48 hrs Weight 155 lb Physical Exam Narrative: EXAM NARRATIVE: Patient is conscious alert oriented X3 BMI 23 Head and neck examination PERRLA no masses no cervical lymphadenopathy no jaundice Abdomen nontender nondistended soft no organomegaly guarding or rigidity/no signs of peritonitis Data : 10/12/19 05:15 10/12/19 05:15 A&P Assessment and plan (1) Small bowel obstruction: As patient continues to pass gas I do believe continue to be on full liquid diet and if he continues to tolerate that can be discharged home and follow-up at surgery office with MRI of the pancreas. Another concern after looking more into the images that patient could have neuroendocrine tumor of the pancreas and could be potentially responsible for his diarrhea, yet patient denies hot flushes or wheezes. At this point I would recommend further work-up in the form of; 1-serum chromogranin A 2-24-hour urinary 5 hydroxy indoleacetic acid If the above proved to be elevated patient may require octreotide scan down the road In addition to CA-19-9 Assurance and education All questions have been answered and all concerns have been addressed to patient's satisfaction. Thank you for consulting general surgery to participate taking care Mr. Green Status: Acute Code(s): K56.609 - Unspecified intestinal obstruction, unspecified as to partial versus complete obstruction Attestations Medical Necessity Statement*: Per hospitalist service Time Spent in Patient Care: 16 - 35 minutes (>than 50% of time spent in counselling and/or direct pt care on unit). 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
[2019-10-12 06:32] LABS: Glucose Point of Care 97 mg/dL (70-110)
[2019-10-12] MEDS: pantoprazole DR 40 mg Tablet PO (08:33)
[2019-10-12] MEDS: metoprolol tartrate 50 mg Tablet 25 MG PO (08:33)
--- NOTE | 2019-10-12 10:49 | PM.DCS ---
Discharge Providers Date of Admission: 10/10/19 20:06 Date of Discharge: October 12, 2019 Attending Provider at Admission: Jaci Dudley MD Attending Provider at Discharge: Piero Calhoun Primary Care Provider: Allyson Alcantarat Diagnoses at Discharge Discharge Diagnosis (1) Small bowel obstruction: Status: Acute (2) Enterocolitis: Status: Acute (3) Pneumonitis: Status: Acute (4) Pancreatic mass: Status: Chronic Problem details: spongy mass, per pt, wrapped around aorta (5) COPD (chronic obstructive pulmonary disease): Status: Chronic Problem details: chronically on 3l oxygen [facility] Qualifiers: COPD type: unspecified COPD Qualified Code(s): J44.9 - Chronic obstructive pulmonary disease, unspecified (6) Diabetes mellitus type 2, noninsulin dependent: Status: Chronic (7) Hypertension: Status: Chronic Qualifiers: Hypertension type: essential hypertension Qualified Code(s): I10 - Essential (primary) hypertension (8) Abnormal urine: Status: Acute (9) Acute renal failure: Status: Acute Qualifiers: Acute renal failure type: unspecified Qualified Code(s): N17.9 - Acute kidney failure, unspecified Reason for Visit Reason for Visit: Reason For Visit: Abd pain/vomiting Hospital Course Hospital Course: Pleasant 74-year-old gentleman with history of pancreatic mass, COPD, DM 2, HTN, ventral hernia was admitted due to abdominal pain and vomiting, with imaging suggestive of small bowel obstruction for which received conservative management, although NG tube could not be passed on presentation. He did also endorse diarrhea and had 6 liquid bowel movements in the hospital, although these were not caught for a sample. He was assessed by surgery, and not found to require acute intervention. CT of abdomen pelvis showed some enlargement of the irregular appearing mass with calcifications, previously reportedly biopsied and benign. His lipase was normal. Diarrhea had completely resolved, and stool samples could not be collected. He was empirically treated with Levaquin and Flagyl due to suspicion of enterocolitis possibly due to ingestion of homemade hamburgers, or well water on his property. He will complete the course. If diarrhea recurs, stool studies are ordered for him on outpatient basis. He was advised to have his well water checked, as well as regarding safe food practices. On admission also with finding of possible UTI, although with only 10-20,000 mixed superficial shanique likely contaminants growing in culture, as well as possible pneumonitis on imaging, although without respiratory symptoms. Has remained afebrile. Had denied any travel or contact with any ill persons. He is tolerating full liquid diet and was cleared by surgery to return home. Due to irregular appearance of the mass, with some large meant, this will be followed up with MRI of the pancreas. Please follow-up the results. Per surgery recommendations Ca 19-9, chromogranin A and 24 hr urine 5-HIAA are ordered as well, and the results will need to be followed up. He will see surgery in clinic after his imaging. All these plans were discussed with him, and he was agreeable and happy to return home. Due to acute kidney injury on presentation ABILIO inhibitor and metformin are held at this time. Please reassess and resume when safe. Physical Exam Const: COMMON NORMALS: no apparent distress and oriented x3 HENMT: COMMON NORMALS: oropharynx normal Neck/C-Spine: COMMON NORMALS: no JVD Resp: COMMON NORMALS: normal respiratory effort and clear to auscultation bilaterally AUSCULTATION: clear to auscultation bilaterally Cardio: COMMON NORMALS: no JVD, regular rhythm, S1 normal heart sound, S2 normal heart sound and no murmurs RHYTHM: regular rhythm HEART SOUNDS: S1 normal and S2 normal GI: COMMON NORMALS: normal to inspection, nondistended, normoactive bowel sounds, soft to palpation and non-tender INSPECTION: Yes abdominal distension PALPATION: Yes soft Extremity: COMMON NORMALS: no joint enlargement and no pedal edema Neuro: COMMON NORMALS: oriented x3 and moves all extremities Skin: COMMON NORMALS: no rashes or lesions noted GENERAL SKIN EXAM: no rashes or lesions noted Discharge Data Data Completed and Pending: Completed Studies During Hospitalization Category Date Time Status CT abdomen pelvis wo con [id number] Urge nt Cat Scan 10/10/19 17:38 Completed XR chest 1V diana ble [id number] Stat Exams 10/10/19 17:43 Completed Pending at discharge Category Date Time Status CDIFF [Clostridiu m Difficile BY PCR ] Routine Lab 10/11/19 06:34 Ordered Complete Blood Co unt w/Auto AM LABS Lab 10/13/19 04:00 Ordered Complete Blood Co unt w/Auto AM LABS Lab 10/14/19 04:00 Ordered Comprehensive Met abolic Panel AM LA BS Lab 10/13/19 04:00 Ordered Comprehensive Met abolic Panel AM LA BS Lab 10/14/19 04:00 Ordered Enteric Bacterial Panel by PCR Rout ine Lab 10/11/19 07:53 Ordered Enteric Parasite Panel by PCR Routi ne Lab 10/11/19 07:53 Ordered Immunochemical Fe annabelle OCB Routine Lab 10/11/19 07:53 Ordered Lactoferrin Routi ne Lab 10/11/19 07:53 Ordered Urine Creatinine Routine Lab 10/10/19 20:32 Ordered Urine Culture Sta t Lab 10/10/19 20:20 Results Urine Random Sodi um Routine Lab 10/10/19 20:32 Ordered Labs from last 24 hours 10/12/19 10/12/19 10/12/19 06:24 05:15 05:15 WBC 7.0 RBC 4.35 Hgb 11.9 Hct 38.0 L MCV 87.4 MCH 27.4 L MCHC 31.3 RDW 15.4 H Plt Count 188 MPV 11.4 H Neut % (Auto) 68.5 Lymph % (Auto) 20.7 [place] % (Auto) 8.6 Eos % (Auto) 1.3 Baso % (Auto) 0.6 Neut # (Auto) 4.8 Lymph # (Auto) 1.4 [place] # (Auto) 0.6 Eos # (Auto) 0.1 Baso # (Auto) 0.0 Nucleated RBC % (a uto) 0 Nucleated RBCs # 0.0 Sodium 137 Potassium 4.4 Chloride 103 Carbon Dioxide 26 Anion Gap 12.4 BUN 23 Creatinine 1.0 Glucose 101 POC Glucose 97 Calculated Osmolal ity 281 L Calcium 9.0 Total Bilirubin 0.4 AST 16 ALT 11 Alkaline Phosphata se 88 Total Protein 5.8 L Albumin 3.7 Globulin 2.1 10/11/19 10/11/19 10/11/19 21:10 17:43 10:56 WBC RBC Hgb Hct MCV MCH MCHC RDW Plt Count MPV Neut % (Auto) Lymph % (Auto) [place] % (Auto) Eos % (Auto) Baso % (Auto) Neut # (Auto) Lymph # (Auto) [place] # (Auto) Eos # (Auto) Baso # (Auto) Nucleated RBC % (a uto) Nucleated RBCs # Sodium Potassium Chloride Carbon Dioxide Anion Gap BUN Creatinine Glucose POC Glucose 85 105 128 Calculated Osmolal ity Calcium Total Bilirubin AST ALT Alkaline Phosphata se Total Protein Albumin Globulin Vitals: Last Vital Signs Temp 98.2 F 10/12/19 07:59 Pulse 65 10/12/19 07:59 Resp 16 10/12/19 07:59 BP 122/70 10/12/19 07:59 Pulse Ox 97 10/12/19 07:59 Discharge Plan Discharge Patient Disposition: Home, Self-Care Condition: Stable Prescriptions: New metronidazole [Flagyl] 500 mg tablet 500 mg PO Q8H 6 Days Qty: 18 RF: 0 levofloxacin [Levaquin] 750 mg tablet 750 mg PO DAILY 6 Days Qty: 6 RF: 0 Continued amlodipine 5 mg tablet 5 mg PO DAILY RF: 0 metoprolol tartrate 50 mg tablet 25 mg PO BID RF: 0 albuterol sulfate 90 mcg/actuation HFA aerosol inhaler See Rx Instructions .ROUTE .COMPLEX RF: 0 esomeprazole magnesium 20 mg Tablet,Delayed Release (Dr/Ec) 20 mg PO DAILY RF: 0 Spiriva Respimat 2.5 mcg/actuation mist 2 puff INHALATION DAILY RF: 0 Held metformin 500 mg tablet 500 mg PO DAILY RF: 0 Hold Instructions: Resume on 10/19/19. benazepril 20 mg tablet 20 mg PO DAILY RF: 0 Hold Instructions: Resume on 11/09/19. Discharge Orders: Discharge Order (Routine); Ordered 10/12/19 Ordered By: Piero Calhoun Other Ambulatory Orders: MR angio abdomen wo/w [id number] (Routine) Timeframe: 1 Week Facility: [facility] - Location: Radiology [facility] Ordered By: Piero Calhoun Cancer Antigen 19 9 (Routine) Timeframe: 1 Week Facility: [facility] - Location: Lab - Main Lab Ordered By: Piero Chatmananeous Procedure (Order) Location: None Selected Ordered By: Piero Chatmananeous Procedure (Order) Timeframe: 2 Days Location: None Selected Ordered By: Piero Chatmananeous Procedure (Order) Location: None Selected Ordered By: Piero Chatmananeous Procedure (Order) Location: None Selected Ordered By: Piero Halytskyy Miscellaneous Procedure (Order) Location: None Selected Ordered By: Piero Calhoun Miscellaneous Procedure (Order) Timeframe: 2 Days Location: None Selected Ordered By: Piero Calhoun Referrals: Vince Masters MD [Physician] - (After MRI abdomen) Jose Mcpherson MD [Staff Physician] - 10/19/19 9:00 am Allyson Cano FNP [Primary Care Provider] - 4-7 days Discharge Diet: Advance as tolerated, Diabetic and Full LIquid Discharge Activity: Increase activity as tolerated Activity Restrictions/Additional Instructions: Benazepril and metformin I will held for now due to acute kidney injury on presentation. Please work with your primary care provider regarding when they are safe to resume. MRI of your pancreas, as well as several blood tests and a urine collection are ordered, please have these completed and subsequently see Dr. Masters in clinic to discuss the results. Stool studies are ordered, in case you have return of diarrhea, please submit a sample. If you experience high fever, severe abdominal pain, return of vomiting with inability to tolerate oral liquids, please seek medical attention. Please practice safe food handling and cooking. Avoid contamination. Please have your well water tested. Discharge Attestations Time Spent in Discharge Care*: greater than 30 min Quality Metrics Clinical Quality Measures During this hospital stay, did patient experience: None Coding Level of Care Code Acute Environmental Services Worker for g Fwd Diagnoses Small bowel obstruction K56.609 Enterocolitis K52.9 Pneumonitis J18.9 Pancreatic mass K86.89 COPD (chronic obstructive pulmonary disease) J44.9 COPD type: unspecified COPD Diabetes mellitus type 2, noninsulin dependent E11.9 Hypertension I10 Hypertension type: essential hypertension Abnormal urine R82.90 Acute renal failure N17.9 Acute renal failure type: unspecified
[2019-10-12] MEDS: levofloxacin-dextrose 5 % 750 MG/150 ML PREMIX 150 MG IV (10:57)
[2019-10-12 11:28] LABS: Glucose Point of Care 122 mg/dL (70-110)
--- NOTE | 2019-10-12 11:47 | PC.NURSE ---
patient given discharge instructions and patient verbalized understanding of instructions. Patient provided with specimen cup, 24 hour urine bottle and urine hat for requested specimens on discharge.
== END 2019-10-12 12:56 | disposition home or self-care (01) | DRG 388 ==
LOC: ER 20:10 → MEDSURG 20:26
PROVIDERS: Admitting Provider Hospitalist; Emergency Provider Emergency Medicine; PCP Nurse Practitioner Family; Visit Provider Internal Medicine
DX: K56.609 Unspecified intestinal obstruction, unspecified as to partial versus complete obstruction (principal); J18.9 Pneumonia, unspecified organism; N17.9 Acute kidney failure, unspecified; N39.0 Urinary tract infection, site not specified; K52.9 Noninfective gastroenteritis and colitis, unspecified; K86.89 Other specified diseases of pancreas; J44.9 Chronic obstructive pulmonary disease, unspecified; E11.9 Type 2 diabetes mellitus without complications; I10 Essential (primary) hypertension; Z87.891 Personal history of nicotine dependence; Z79.52 Long term (current) use of systemic steroids; Z79.83 Long term (current) use of bisphosphonates; Z79.2 Long term (current) use of antibiotics; Z79.84 Long term (current) use of oral hypoglycemic drugs
CPT/HCPCS: 12345; 36415; 36416; 71045; 74176; 80048; 80053; 81001; 82962; 83036; 83605; 83690; 85025; 85610; 87086; 87804; 96375; 99283; J0696; J1956; J2405; J3490; J3535; J7030; S0030

== ENCOUNTER 2019-10-14 08:43 | Outpatient (CLI) | payer MEDICARE, SELFPAY ==
--- NOTE | 2019-10-14 09:28 | MR_ITS ---
WS: [id number] MRCP, 10/14/2019 Clinical Data: PANCREAS - MASS Comparison: CT abdomen, 10/10/2019 Findings: There is a cystic mass occupying the central portion of the pancreas which measures 8.97 x 13.1 x 15. 1 cm in AP, transverse and superior inferior dimension respectively. There are multiple cystic areas throughout this lesion. No evidence of acute pancreatitis is seen. Distal pancreas is atrophic There are numerous septations. The mass displaces the fundus of the stomach laterally but does not invade i t. It appears to be separate from the stomach and duodenum. The common bile duct is normal. The diana l vein is well seen. The liver shows no lesions. The kidneys show numerous simple cysts. The spleen i s normal. The gallbladder is absent. The abdominal aorta is not remarkable. The superior vena cava is normal. No small bowel dilatation is noted. MR/MR abdomen wo/w con* [id number] Impression: 1. 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 2. The stomach and duodenum are displaced but not invaded by this cystic lesion .
[2019-10-14 13:56] LABS: Cancer Antigen 19 9 35.69 U/mL (0-35)
[2019-10-17 17:31] LABS: Chromogranin A 455 ng/mL (25-140)
== END 2019-10-14 08:44 | disposition home or self-care (01) ==
LOC: RADWPI 08:50
PROVIDERS: Internal Medicine; PCP Nurse Practitioner Family; Visit Provider Surgery
DX: K86.89 Other specified diseases of pancreas (principal); K86.2 Cyst of pancreas
CPT/HCPCS: 74183; 86301; 86316; A9579

== ENCOUNTER 2019-10-14 12:06 | Outpatient (CLI) | payer MEDICARE, SELFPAY | END 2019-10-14 12:07 | disposition home or self-care (01) | LOC: LAB 12:11 | PROVIDERS: PCP Nurse Practitioner Family; Visit Provider Internal Medicine | DX: Z01.89 Encounter for other specified special examinations (principal) ==

== ENCOUNTER 2019-10-17 10:32 | Outpatient (CLI) | payer MEDICARE, SELFPAY | END 2019-10-17 10:33 | disposition home or self-care (01) | LOC: LAB 10:38 | PROVIDERS: PCP Nurse Practitioner Family; Visit Provider Nurse Practitioner Family | DX: K52.9 Noninfective gastroenteritis and colitis, unspecified (principal) | CPT/HCPCS: 83630; 87493; 87506 ==

== ENCOUNTER 2020-09-09 10:28 | Emergency (ER) | payer MEDICARE, SELFPAY ==
[2020-09-09] VITALS (8 sets, daily range): BP systolic 123–178; BP diastolic 71–83; PULSE 81–94; RESP 15–24; O2SAT 86–96; BMI 28.7
--- NOTE | 2020-09-09 10:41 | ECG_ITS ---
[facility] Test Date: 2020-09-09 Pat Name: Jonathon Green Department: Room: Gender: Male Framing Manager: : 1945 Requested By: Wyatt Riojas Order Number: [id number] Freddie MD: Juliana Conde M.D. 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 [id number] f
--- NOTE | 2020-09-09 10:41 | XRR_ITS ---
PROCEDURE INFORMATION: Exam: XR Chest, 1 View Exam date and time: 09/09/2020 10:51 AM Age: 75 years old Clinical indication: Shortness of breath; Additional info: SOB TECHNIQUE: Imaging protocol: XR of the chest Views: 1 view. COMPARISON: CR (CHEST, ) 10/10/2019 6:10 PM FINDINGS: Lungs: Unremarkable. No consolidation. Pleural spaces: Unremarkable. No pleural effusion. No pneumothorax. Heart/Mediastinum: Unremarkable. No cardiomegaly. Bones/joints: Unremarkable. XR/XR chest 1V portable [id number] IMPRESSION: No acute findings.
--- NOTE | 2020-09-09 10:43 | W.ED.SOB ---
HPI - SOB/Dyspnea General: Chief Complaint: Shortness of Breath/Dyspnea Stated Complaint: SOB Time Seen by Provider: 09/09/20 10:33 Source: patient Mode of arrival: ambulatory Limitations: no limitations History of Present Illness: HPI Narrative: 75-year-old male with a history of COPD states he has had increased wheezing and dyspnea over the last 2 weeks with a being much worse last 2 to 3 days. He denies any fever he has had a slight cough. States has been doing breathing treatments that does have some improvement. He states is worse with exacerbation walking. Associated symptoms: Deny abdominal pain, chest pain, fever(s), nausea or vomiting Review of Systems Const: Denies: fever(s), chills, body aches or change in appetite Eyes: Denies: blurry vision or eye discomfort ENMT: Denies: throat pain or dental pain Card: Denies: chest pain Resp: Reports: dyspnea, productive cough and wheezing GI: Denies: abdominal pain, nausea, vomiting or diarrhea : Denies: dysuria Musc: Denies: neck pain or back pain Skin/Breast: Denies: rash Neuro: Denies: headache(s) Psych: Denies: depression Narciso/Lymph: Denies: easy bruising All/Imm: Denies: urticaria PFSH ED PFSH: Medical History (Updated 09/09/20 @ 12:16 by Wyatt Riojas MD) COPD (chronic obstructive pulmonary disease) chronically on 3l oxygen [facility] Diabetes mellitus type 2, noninsulin dependent Hypertension Pancreatic mass spongy mass, per pt, wrapped around aorta Ventral hernia multiple, no current mesh Surgical History History of cholecystectomy History of laparotomy (~2012) unable to resect mass, had mesh, removed after infection, has multiple ventral hernias related to this Previous back surgery x 4, L3, L4, L5 S/P TURP Family History Unknown Cancer breast, skin, brain, colon Social History Smoking and tobacco status: former smoker Quit status (tobacco): has quit using tobacco Year quit tobacco: 2011 Alcohol intake: current Alcohol intake frequency: holidays/special occasions only Household members: children Marital status: / Physical Exam Const: COMMON NORMALS: no acute distress, patient oriented x3 and healthy appearing HENMT: COMMON NORMALS: normocephalic and atraumatic HEAD & SCALP: normocephalic and atraumatic Eye: COMMON NORMALS: Equal, round and reactive pupils present and EOMs intact bilaterally PUPIL: Yes Equal, round and reactive pupils present Neck/C-Spine: COMMON NORMALS: full ROM and supple Chest: COMMONS NORMALS: normal inspection of the chest and normal palpation of entire chest wall Resp: COMMON NORMALS: normal respiratory effort, No retractions and No use of accessory muscles AUSCULTATION: wheezes Cardio: COMMON NORMALS: regular rate, regular rhythm and No murmurs present (Cardio) RATE: regular rate RHYTHM: regular rhythm GI: COMMON NORMALS: Normal to inspection, nondistended, normoactive bowel sounds present, Soft to palpation, non-tender and no masses PALPATION: Yes Soft to palpation Extremity: COMMON NORMALS: normal to inspection and full ROM Neuro: COMMON NORMALS: patient oriented x3, moves all extremities and no focal motor deficits Psych: COMMON NORMALS: mental status grossly normal, Normal thought process present and cooperative THOUGHT PROCESS: Normal thought process present Skin: COMMON NORMALS: no rashes or lesions noted and no wounds GENERAL SKIN EXAM: no rashes or lesions noted Course Vital Signs: Vital signs: Vital Signs Pulse Rate 86 09/09/20 12:41 Respiratory Rate 20 H 09/09/20 12:41 Blood Pressure 130/79 09/09/20 12:41 Pulse Oximetry 94 09/09/20 12:41 MDM - SOB/Dyspnea MDM Narrative: Medical decision making narrative: Violeta presents here with COPD with exacerbation. We will start him on steroids along with antibiotics. Patient able ambulate the halls and feels much improved after breathing treatments. He has no signs of pulmonary embolism or pneumonia. He is to follow-up with PCP and return if worsening. Lab Data: Labs: Lab Results 09/09/20 09/09/20 Range/Units 10:40 10:40 WBC 17.0 H (4.0-10.0) 10^3/ uL RBC 4.78 (4.1-5.3) 10^6/u L Hgb 12.9 (11.7-16.6) g/dL Hct 41.7 L (42.0-52.0) % MCV 87.2 (80-94) fL MCH 27.0 L (28.0-34.0) pg MCHC 30.9 (30.0-36.0) g/dL RDW 14.4 (12.1-15.1) % Plt Count 357 (130-400) 10^3/c mm MPV 10.9 H (7.4-10.4) fL Neut % (Auto) 86.0 % Lymph % (Auto) 5.0 % Shannon % (Auto) 6.7 % Eos % (Auto) 1.4 % Baso % (Auto) 0.6 % Neut # (Auto) 14.65 H (1.8-7.7) 10^3/u L Lymph # (Auto) 0.9 (0.8-4.8) 10^3/u L Shannon # (Auto) 1.1 H (0.2-0.9) 10^3/u L Eos # (Auto) 0.2 (0.0-0.8) 10^3/u L Baso # (Auto) 0.1 (0.0-0.1) 10^3/u L Nucleated RBC % (a uto) 0 % Nucleated RBCs # 0.0 /100WBC Sodium 139 (136-145) mmol/L Potassium 3.7 (3.5-5.1) mmol/L Chloride 97 L (98-107) mmol/L Carbon Dioxide 32 H (22-29) mmol/L Anion Gap 13.7 (5-19) BUN 12 (8-23) mg/dL Creatinine 0.7 (0.7-1.2) mg/dL GFR Calculation Not Reportable Glucose 167 H (65-115) mg/dL Calculated Osmolal ity 292 (285-295) mOsm/k g Calcium 9.6 (8.5-10.5) mg/dL Total Bilirubin 0.3 (0.15-1.2) mg/dL AST 12 (0-40) U/L ALT 9 (0-41) U/L Alkaline Phosphata se 135 H (40-130) IU/L NT-Pro-B Natriuret Pep 202 H (0-125) pg/mL Total Protein 7.4 (6.6-8.7) g/dL Albumin 3.9 (3.5-5.2) g/dL Globulin 3.5 (1.3-4.6) g/dL Imaging Data^: CXR: Attestation: I personally reviewed and interpreted this imaging study as follows: My impression: no acute abnormality EKG Data^: EKG 1: Attestation: I personally reviewed and interpreted this EKG as follows: EKG Interpretation Date: 09/09/20 EKG interpretation time: 10:39 Interpretation: nsr hr [address] or t wave abnormalities qrs 70 qtc 382 Discharge Plan Discharge Patient Disposition: Home Clinical Impression: Acute exacerbation of chronic obstructive airways disease Condition: Stable Prescriptions: New albuterol sulfate 2.5 mg /3 mL (0.083 %) solution for nebulization 2.5 mg INHALATION Q4H PRN (Reason: shortness of breath or wheezing) Qty: 90 RF: 0 Keflex 500 mg capsule 500 mg PO Q6H 7 Days Qty: 28 RF: 0 prednisone 50 mg tablet 50 mg PO DAILY Qty: 5 RF: 0 No Action metformin 500 mg tablet 500 mg PO DAILY RF: 0 Hold Instructions: Resume on 10/19/19. amlodipine 5 mg tablet 5 mg PO DAILY RF: 0 metoprolol tartrate 50 mg tablet 25 mg PO BID RF: 0 benazepril 20 mg tablet 20 mg PO DAILY RF: 0 Hold Instructions: Resume on 11/09/19. albuterol sulfate 90 mcg/actuation HFA aerosol inhaler See Rx Instructions .ROUTE .COMPLEX RF: 0 esomeprazole magnesium 20 mg Tablet,Delayed Release (Dr/Ec) 20 mg PO DAILY RF: 0 Spiriva Respimat 2.5 mcg/actuation mist 2 puff INHALATION DAILY RF: 0 Discharge Orders: Discharge ED (Routine); Ordered 09/09/20 Ordered By: Wyatt Riojas Referrals: Allyson Cano MAGAZINE KEEPER [Primary Care Provider] - Discharge Diet: Advance as tolerated Discharge Activity: Resume usual activity Patient Instructions: Chronic Obstructive Pulmonary Disease (ED) Coding Level of Care Code ED Ad Terminal Makeup Operator for Chg Fwd Exam Comprehensive
[2020-09-09 11:00] LABS: Basophils # 0.1 10^3/uL (0.0-0.1); Basophils % 0.6 %; Eosinophils # 0.2 10^3/uL (0.0-0.8); Eosinophils % 1.4 %; Hematocrit 41.7 % (42.0-52.0); Hemoglobin 12.9 g/dL (11.7-16.6); Lymphocytes # 0.9 10^3/uL (0.8-4.8); Mean Corpuscular HGB Conc 30.9 g/dL (30.0-36.0); Mean Corpuscular Volume 87.2 fL (80-94); Mean Platelet Volume 10.9 fL (7.4-10.4); Monocytes # 1.1 10^3/uL (0.2-0.9); Monocytes % 6.7 %; Neutrophils # 14.65 10^3/uL (1.8-7.7); Nucleated Red Blood Cells % 0 %; Platelet Count 357 10^3/cmm (130-400); Red Blood Count 4.78 10^6/uL (4.1-5.3); Red Cell Distribution Width 14.4 % (12.1-15.1)
[2020-09-09] MEDS: ipratropium-albuterol 3 mL Neb INHALATION (11:10)
[2020-09-09 11:19] LABS: Alanine Aminotransferase 9 U/L (0-41); Albumin Level 3.9 g/dL (3.5-5.2); Alkaline Phosphatase 135 IU/L (40-130); Anion Gap 13.7 (5-19); Aspartate Amino Transferase 12 U/L (0-40); Blood Urea Nitrogen 12 mg/dL (8-23); Calcium 9.6 mg/dL (8.5-10.5); Carbon Dioxide 32 mmol/L (22-29); Chloride 97 mmol/L (98-107); Globulin 3.5 g/dL (1.3-4.6); Glucose 167 mg/dL (65-115); NT Pro B Type Natriuretic Pept 202 pg/mL (0-125); Osmolality Calculated 292 mOsm/kg (285-295); Potassium 3.7 mmol/L (3.5-5.1); Sodium 139 mmol/L (136-145); Total Bilirubin 0.3 mg/dL (0.15-1.2); Total Protein 7.4 g/dL (6.6-8.7)
== END 2020-09-09 12:41 | disposition home or self-care (01) ==
PROVIDERS: Emergency Provider Emergency Medicine; PCP Nurse Practitioner Family
DX: J44.1 Chronic obstructive pulmonary disease with (acute) exacerbation (principal); Z79.84 Long term (current) use of oral hypoglycemic drugs; E11.9 Type 2 diabetes mellitus without complications; I10 Essential (primary) hypertension; Z87.891 Personal history of nicotine dependence
CPT/HCPCS: 71045; 80053; 83880; 85025; 93005; 94640; 96374; 99283; J2930; J7611

== ENCOUNTER 2022-09-20 14:57 | Emergency (ER) | payer MEDICARE, SELFPAY ==
[2022-09-20] VITALS (8 sets, daily range): BP systolic 94–138; BP diastolic 45–80; PULSE 53–105; RESP 16–26; TEMP 37.2; O2SAT 94–99; BMI 24.3
--- NOTE | 2022-09-20 15:07 | W.ED.SOB ---
HPI - SOB/Dyspnea General: Chief Complaint: Shortness of Breath/Dyspnea Stated Complaint: RESP DISTRESS; COUGH Time Seen by Provider: 09/20/22 15:07 History of Present Illness: HPI Narrative: Mr. Green is a 77-year-old male with history of COPD with chronic hypoxic respiratory failure on 4 L at baseline presenting to the emergency department for shortness of breath and chest pain. He reports being in his baseline health the past few days had had onset of symptoms this morning. He describes onset of heaviness in his chest during rest associated with shortness of breath. Intensity symptoms is moderate to severe. Denies other typical cardiac features. No other specific changes in health, exacerbating, or alleviating factors identified. Onset (ago): hour(s) Timing: constant Severity: severe Exacerbating factors: lying flat and exertion Relieving factors: oxygen Known history of: COPD Associated symptoms: Reports chest pain Review of Systems General: Reports: 10 or more systems reviewed and unremarkable except in HPI and below Card: Reports: chest pain [facility] ED PFSH: Medical History COPD (chronic obstructive pulmonary disease) chronically on 3l oxygen [facility] Diabetes mellitus type 2, noninsulin dependent Hypertension Pancreatic mass spongy mass, per pt, wrapped around aorta Ventral hernia multiple, no current mesh Surgical History History of cholecystectomy History of laparotomy (~2012) unable to resect mass, had mesh, removed after infection, has multiple ventral hernias related to this Previous back surgery x 4, L3, L4, L5 S/P TURP Family History Unknown Cancer breast, skin, brain, colon Social History Smoking and tobacco status: former smoker Quit status (tobacco): has quit using tobacco Year quit tobacco: 2011 Alcohol intake: current Alcohol intake frequency: holidays/special occasions only Household members: children Marital status: / Physical Exam Const: COMMON NORMALS: alert GENERAL APPEARANCE: cooperative and well developed HENMT: COMMON NORMALS: normocephalic and atraumatic HEAD & SCALP: normocephalic and atraumatic Eye: COMMON NORMALS: conjunctivae normal CONJUNCTIVA: Yes conjunctivae normal SCLERA: sclerae normal Neck/C-Spine: COMMON NORMALS: supple GENERAL: Yes trachea midline Resp: EFFORT & INSPECTION: Yes tachypneic AUSCULTATION: wheezes and diminished lung sounds Cardio: COMMON NORMALS: regular rate and regular rhythm RATE: regular rate RHYTHM: regular rhythm GI: COMMON NORMALS: Soft to palpation PALPATION: Yes Soft to palpation and No Tenderness to palpation present (GI) Extremity: GENERAL: Yes normal exam except as noted and No edema Neuro: COMMON NORMALS: moves all extremities SENSORIUM/ORIENTATION: Yes alert and No Orientation impaired Psych: COMMON NORMALS: mental status grossly normal and Normal thought process present THOUGHT PROCESS: Normal thought process present Course Vital Signs: Vital signs: Vital Signs Temperature 98.9 F 09/20/22 14:58 Pulse Rate 83 09/20/22 17:07 Respiratory Rate 18 09/20/22 17:02 Blood Pressure 138/80 09/20/22 15:46 Pulse Oximetry 98 09/20/22 17:02 Oxygen Delivery Me thod 09/20/22 17:02 Oxygen Flow Rate 4 09/20/22 17:02 MDM - SOB/Dyspnea Medical Decision Making 77-year-old gentleman presenting with cough and chest heaviness as well as increased work of breathing. Exam as above with evidence of respiratory decompensation. EKG demonstrates sinus rhythm with ST segment abnormalities, left axis deviation, no STEMI. Labs notable for leukocytosis, metabolic panel without significant electrolyte derangement. Negative range 2-hour delta troponin. Patient positive for entero-/rhinovirus. Chest x-ray with peribronchial thickening, no lobar consolidation or pneumothorax. Patient treated with steroids, aspirin, antibiotics, repeat RT treatment with marked improvement in symptoms. He is back to his baseline oxygenation. Most likely cause of patient's symptoms is viral induced exacerbation of her COPD. I did explain that he is not low risk for major adverse cardiac events and recommended inpatient management which he declined. Plan to treat outpatient for COPD exacerbation. The results of ED evaluation were discussed with the patient including possible disposition options. I discussed risk stratification by heart score and estimated risk of major adverse cardiac events. The patient wishes to proceed with outpatient management. I discussed prescriptions and/or symptomatic cares (if applicable) including appropriate and responsible use, followup plan, and return precautions. The patient verbalized understanding and felt safe for discharge. Medical Records I reviewed the patient's medical records. Lab Data I reviewed the patient's lab results. 09/20/22 15:15 09/20/22 15:15 Labs/Radiology: Radiology Impressions Chest X-Ray 09/20/22 15:10 IMPRESSION: Peribronchial thickening suggestive of infectious or inflammatory bronchitis. No consolidation. Laboratory Results WBC 17.6 10^3/uL (4.0-10.0) H 09/20/22 15:15 RBC 4.73 10^6/uL (4.1-5.3) 09/20/22 15:15 Hgb 12.3 g/dL (11.7-16.6) 09/20/22 15:15 Hct 40.4 % (42.0-52.0) L 09/20/22 15:15 MCV 85.4 fl (80-94) 09/20/22 15:15 MCH 26.0 pg (28.0-34.0) L 09/20/22 15:15 MCHC 30.4 g/dL (30.0-36.0) 09/20/22 15:15 RDW 14.6 % (12.1-15.1) 09/20/22 15:15 Plt Count 243 10^3/cmm (130-400) 09/20/22 15:15 MPV 11.6 fL (7.4-10.4) H 09/20/22 15:15 Neut % (Auto) 86.0 % 09/20/22 15:15 Lymph % (Auto) 4.7 % 09/20/22 15:15 Noble % (Auto) 7.7 % 09/20/22 15:15 Eos % (Auto) 1.0 % 09/20/22 15:15 Baso % (Auto) 0.3 % 09/20/22 15:15 Neut # (Auto) 15.15 10^3/uL (1.8-7.7) H 09/20/22 15:15 Lymph # (Auto) 0.8 10^3/uL (0.8-4.8) 09/20/22 15:15 Noble # (Auto) 1.4 10^3/uL (0.2-0.9) H 09/20/22 15:15 Eos # (Auto) 0.2 10^3/uL (0.0-0.8) 09/20/22 15:15 Baso # (Auto) 0.1 10^3/uL (0.0-0.1) 09/20/22 15:15 Nucleated RBC % (auto) 0 % 09/20/22 15:15 Nucleated RBCs # 0.0 /100WBC 09/20/22 15:15 Sodium 139 mmol/L (136-145) 09/20/22 15:15 Potassium 4.5 mmol/L (3.5-5.1) 09/20/22 15:15 Chloride 99 mmol/L (98-107) 09/20/22 15:15 Carbon Dioxide 31 mmol/L (22-29) H 09/20/22 15:15 Anion Gap 13.5 (5-19) 09/20/22 15:15 BUN 16 mg/dL (8-23) 09/20/22 15:15 Creatinine 0.9 mg/dL (0.7-1.2) 09/20/22 15:15 GFR Calculation Not Reportable 09/20/22 15:15 Glucose 149 mg/dL (65-115) H 09/20/22 15:15 Calculated Osmolality 292 mOsm/kg (285-295) 09/20/22 15:15 Calcium 9.4 mg/dL (8.5-10.5) 09/20/22 15:15 Total Bilirubin 0.3 mg/dL (0.15-1.2) 09/20/22 15:15 AST 12 U/L (0-40) 09/20/22 15:15 ALT 11 U/L (0-41) 09/20/22 15:15 Alkaline Phosphatase 132 U/L (40-130) H 09/20/22 15:15 Troponin T Baseline 23 ng/L (0-15) H 09/20/22 15:15 Troponin T 120 Minute 24.00 ng/L (0-15) H 09/20/22 17:15 Delta Troponin T 1.00 ABS# (0-10) 09/20/22 17:15 NT-Pro-B Natriuret Pep 772 pg/mL (0-450) H 09/20/22 15:15 Total Protein 7.3 g/dL (6.6-8.7) 09/20/22 15:15 Albumin 4.2 g/dL (3.5-5.2) 09/20/22 15:15 Globulin 3.1 g/dL (1.3-4.6) 09/20/22 15:15 Coronavirus 229E (PCR) Not detected (NOT DETECT) 09/20/22 15:45 Human Metapneumovir PCR Not detected (NOT DETECT) 09/20/22 17:58 Entero/Rhino (PCR) Detected (NOT DETECT) A 09/20/22 17:58 SARS-CoV-2 (PCR) Not detected (NOT DETECT) 09/20/22 15:45 Discharge Plan Discharge Patient Disposition: Home Clinical Impression: Acute exacerbation of chronic obstructive airways disease, Chest pain Condition: Stable Prescriptions: New amoxicillin-pot clavulanate 875-125 mg tablet 1 tab PO BID Qty: 20 0RF No Action albuterol sulfate 2.5 mg /3 mL (0.083 %) solution for nebulization 2.5 mg INHALATION Q4H PRN (Reason: shortness of breath or wheezing) Qty: 180 1RF prednisone 20 mg tablet See Rx Instructions .Route .COMPLEX Qty: 14 0RF Rx Instructions: 2 tabs PO daily for 4 days, then 1 tab PO daily X 4 days, then 0.5 tab daily for 4 days, then stop; albuterol sulfate [Ventolin HFA] 90 mcg/actuation HFA aerosol inhaler See Rx Instructions .ROUTE .COMPLEX Qty: 18 0RF Hold Instructions: out of stock at pharmacy Dose Instruction: INHALE 2 PUFFS FOUR TIMES DAILY NEEDED Rx Instructions: INHALE 2 PUFFS FOUR TIMES DAILY NEEDED esomeprazole magnesium 20 mg tablet,delayed release (DR/EC) 20 mg PO DAILY Qty: 30 0RF Hold Instructions: Doctor's Order Spiriva Respimat 2.5 mcg/actuation mist 2 puff INHALATION DAILY Qty: 4 0RF levalbuterol HCl 0.63 mg/3 mL solution for nebulization 0.63 mg inhalation TID PRN (Reason: shortness of breath or wheezing) Qty: 75 1RF Rx Instructions: substituted for albuterol metformin 500 mg tablet 500 mg PO QPM amlodipine 5 mg tablet 5 mg PO QPM metoprolol tartrate 50 mg tablet 25 mg PO BID benazepril 20 mg tablet 20 mg PO QPM Discharge Orders: Discharge ED (Routine); Ordered 09/20/22 Ordered By: Len Alicea Referrals: Allyson Cano, NEW PRODUCT TRAINER [Primary Care Provider] - Discharge Diet: Usual diet Discharge Activity: Increase activity as tolerated Activity Restrictions/Additional Instructions: Thank you for visiting the emergency department. You were seen and evaluated for chest tightness and shortness of breath. The exact cause of your symptoms is likely multifactorial including exacerbation of underlying lung disease. As discussed you are not low risk for adverse cardiac events and further cardiac evaluation is appropriate which you are choosing to do in the outpatient setting. I will message case management for follow-up and you should be contacted. I will prescribe steroids and antibiotics. Please also use your albuterol metered-dose inhaler 2 puffs every 4 hours for 24 hours followed by 2 puffs every 6 hours for 24 hours followed by 2 puffs every 8 hours for 24 hours and then return to the normal schedule. Please follow-up with your primary care provider. Return to the emergency department for worsening symptoms or anything else that you are concerned about and feel needs emergency department evaluation. Coding Level of Care Code ED School Commissioner for Juliana Amado
--- NOTE | 2022-09-20 15:10 | XRR_ITS ---
PROCEDURE INFORMATION: Exam: XR Chest Exam date and time: 09/20/2022 3:16 PM Age: 77 years old Clinical indication: Shortness of breath; Additional info: SOB TECHNIQUE: Imaging protocol: Radiologic exam of the chest. Views: 1 view. COMPARISON: CR XR chest 1V portable [id number] 09/09/2020 10:50 AM FINDINGS: Lungs: Peribronchial thickening. Redemonstrated coarsening of the lung parenchyma particularly at the lung bases. No consolidation. Pleural spaces: No pleural effusion. No pneumothorax. Heart/Mediastinum: No cardiomegaly. Bones/joints: Visualized osseous structures are intact. XR/XR chest 1V portable [id number] IMPRESSION: Peribronchial thickening suggestive of infectious or inflammatory bronchitis. No consolidation.
--- NOTE | 2022-09-20 15:11 | ECG_ITS ---
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 Measurements Intervals [place] Rate: 119 P: -17 TX: 136 QRS: -19 QRSD: 69 T: -19 QT: 288 QTc: 406 Interpretive Statements SINUS RHYTHM WITH PACs LOW QRS VOLTAGE IN PRECORDIAL LEADS [QRS DEFLECTION < 1.0 mV IN CHEST LEADS] INFERIOR MYOCARDIAL INFARCTION , OF INDETERMINATE AGE [40+ ms Q WAVE AND/OR ST/T ABNORMALITY IN II/aVF] Compared to ECG 09/09/2020 10:39:30 Myocardial infarct finding now present Electronically Signed On 09-20-2022 16:07:30 [employer]ANE PILOT by Batr Bond M.D. [id number]
[2022-09-20] MEDS: ipratropium-albuterol 3 mL Neb INHALATION (15:19)
[2022-09-20 15:35] LABS: Basophils # 0.1 10^3/uL (0.0-0.1); Basophils % 0.3 %; Eosinophils # 0.2 10^3/uL (0.0-0.8); Hematocrit 40.4 % (42.0-52.0); Hemoglobin 12.3 g/dL (11.7-16.6); Lymphocytes # 0.8 10^3/uL (0.8-4.8); Lymphocytes % 4.7 %; Mean Corpuscular HGB Conc 30.4 g/dL (30.0-36.0); Mean Corpuscular Volume 85.4 fl (80-94); Mean Platelet Volume 11.6 fL (7.4-10.4); Monocytes # 1.4 10^3/uL (0.2-0.9); Monocytes % 7.7 %; Neutrophils # 15.15 10^3/uL (1.8-7.7); Nucleated Red Blood Cells % 0 %; Platelet Count 243 10^3/cmm (130-400); Red Blood Count 4.73 10^6/uL (4.1-5.3); Red Cell Distribution Width 14.6 % (12.1-15.1); White Blood Count 17.6 10^3/uL (4.0-10.0)
[2022-09-20] MEDS: aspirin 81 mg Chew Tablet 324 MG PO (15:37)
[2022-09-20] MEDS: doxycycline 100 MG in sodium chloride 0.9% (plus) 100 ML IV (15:37)
[2022-09-20 15:49] LABS: Troponin(5th) Baseline 23 ng/L (0-15)
[2022-09-20 16:16] LABS: Alanine Aminotransferase 11 U/L (0-41); Albumin Level 4.2 g/dL (3.5-5.2); Alkaline Phosphatase 132 U/L (40-130); Anion Gap 13.5 (5-19); Aspartate Amino Transferase 12 U/L (0-40); Blood Urea Nitrogen 16 mg/dL (8-23); Calcium 9.4 mg/dL (8.5-10.5); Carbon Dioxide 31 mmol/L (22-29); Chloride 99 mmol/L (98-107); Globulin 3.1 g/dL (1.3-4.6); Glucose 149 mg/dL (65-115); NT Pro B Type Natriuretic Pept 772 pg/mL (0-450); Osmolality Calculated 292 mOsm/kg (285-295); Potassium 4.5 mmol/L (3.5-5.1); Sodium 139 mmol/L (136-145); Total Bilirubin 0.3 mg/dL (0.15-1.2); Total Protein 7.3 g/dL (6.6-8.7)
[2022-09-20] MEDS: albuterol 2.5 mg/3 mL Neb INHALATION (17:02)
--- NOTE | 2022-09-20 17:11 | ECG_ITS ---
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 Measurements Intervals [place] Rate: 92 P: -12 OR: 163 QRS: 0 QRSD: 82 T: -9 QT: 314 QTc: 390 Interpretive Statements SINUS RHYTHM LOW QRS VOLTAGE IN PRECORDIAL LEADS [QRS DEFLECTION < 1.0 mV IN CHEST LEADS] Compared to ECG 09/20/2022 15:05:33 Myocardial infarct finding no longer present Electronically Signed On 09-20-2022 21:11:27 BATH ATTENDANT by Bart Bond M.D. [email or web address]
[2022-09-20 17:30] LABS: Adenovirus Not Detected (NOT DETECT); Chlamydia Pneumoniae Not Detected (NOT DETECT); Coronavirus 229E,HKU1,NL63,OC4 Not Detected (NOT DETECT); Human Metapneumovirus Not Detected (NOT DETECT); Human Rhinovirus/Enterovirus Detected (NOT DETECT); Influenza A Not Detected (NOT DETECT); Influenza A H1 Not Detected (NOT DETECT); Influenza A H1-2009 Not Detected (NOT DETECT); Influenza A H3 Not Detected (NOT DETECT); Influenza B Not Detected (NOT DETECT); Mycoplasma Pneumoniae Not Detected (NOT DETECT); Parainfluenza Virus Type 1 Not Detected (NOT DETECT); Parainfluenza Virus Type 2 Not Detected (NOT DETECT); Parainfluenza Virus Type 3 Not Detected (NOT DETECT); Parainfluenza Virus Type 4 Not Detected (NOT DETECT); Respiratory Syncytial Virus A Not Detected (NOT DETECT); Respiratory Syncytial Virus B Not Detected (NOT DETECT); SARS-COV-2 Not Detected (NOT DETECT)
[2022-09-20 17:59] LABS: Human Metapneumovirus Not Detected (NOT DETECT); Human Rhinovirus/Enterovirus Detected (NOT DETECT); Results from Genmark
--- NOTE | 2022-09-22 11:23 | DCPLANNER ---
Addendum entered by Bella Carter 10/01/22 10:24: manager economic received the following message from centralized scheduling regarding stress test and echo: Jonathon Green 47 attempted 3x to schedule stress test and Also pt echo manager economic unable to contact patient Original Note: manager economic had message to schedule an outpatient stress test and echo for patient. manager economic faxed signed order to centralized scheduling, who will call patient with appointment information.
== END 2022-09-20 19:30 | disposition home or self-care (01) ==
PROVIDERS: Emergency Provider Emergency Medicine; PCP Nurse Practitioner Family
DX: J44.1 Chronic obstructive pulmonary disease with (acute) exacerbation (principal); R07.9 Chest pain, unspecified
CPT/HCPCS: 36415; 71045; 80053; 83880; 84484; 85025; 87040; 87635; 87801; 93005; 94640; 96365; 96366; 96375; 99285; J2930; J3490; J7613

== ENCOUNTER → 2022-09-25 08:44 | Outpatient (BNVA) | payer MEDICARE, SELFPAY | PROVIDERS: PCP Nurse Practitioner Family; Visit Provider Clinical Nurse Specialist Adult Health | DX: E11.9 Type 2 diabetes mellitus without complications (principal) | CPT/HCPCS: 83036 ==

== ENCOUNTER → 2023-11-25 09:13 | Outpatient (BNVA) | payer SELFPAY | PROVIDERS: PCP Clinical Nurse Specialist Adult Health; Visit Provider Clinical Nurse Specialist Adult Health | DX: J44.9 Chronic obstructive pulmonary disease, unspecified (principal); E11.9 Type 2 diabetes mellitus without complications; N18.9 Chronic kidney disease, unspecified; I12.9 Hypertensive chronic kidney disease with stage 1 through stage 4 chronic kidney disease, or unspecified chronic kidney disease | CPT/HCPCS: 80053; 83036; 85025 ==